=== PATIENT | female | born 1930 | race Caucasian/White ===

== ENCOUNTER 2016-10-17 09:33 | Inpatient (IN) ==
[2016-10-17 10:14] LABS: BASOPHILS % (AUTO) 0.4 % (0.0-3.0); EOSINOPHILS # (AUTO) 0.4 K/ul (0.0-0.7); EOSINOPHILS % (AUTO) 3.3 % (0.0-7.0); HEMATOCRIT 28.7 % (37.0-47.0); HEMOGLOBIN 9.7 g/dl (12.0-16.0); IMMATURE GRANULOCYTE % (AUTO) 0.7 % (0.0-5.0); LYMPHOCYTES # (AUTO) 0.8 K/uL (0.60-3.4); LYMPHOCYTES % (AUTO) 6.7 (10.0-50.0); MEAN CORPUSCULAR HEMOGLOBIN 31.3 pg (27.0-31.0); MEAN CORPUSCULAR HGB CONC 33.8 (31.8-35.4); MEAN CORPUSCULAR VOLUME 92.6 fl (81.0-99.0); NEUTROPHILS # (AUTO) 9.1 K/ul (2.0-6.9); NEUTROPHILS % (AUTO) 79.9; PLATELET COUNT 194 10^3/uL (140-440)
[2016-10-17 10:25] LABS: ADD URINE MICROSCOPIC YES; BILIRUBIN,URINE Negative (NEGATIVE); KETONES,URINE Negative (NEGATIVE); LEUKOCYTE ESTERASE ,URINE 3+ (NEGATIVE); NITRITE,URINE Positive (NEGATIVE); PH,URINE 8.5 (5-9); PROTEIN,URINE 2+ (NEGATIVE); URINE, BLOOD 1+ (NEGATIVE)
[2016-10-17 10:32] LABS: ALBUMIN 3.1 g/dL (3.4-5.0); ALBUMIN/GLOBULIN RATIO 0.84; ANION GAP 11.4; BILIRUBIN,TOTAL 0.36 mg/dL (0.00-1.20); BUN/CREATININE RATIO 51.68; CREATININE 0.89 mg/dL (0.60-1.30); POTASSIUM 4.4 mmol/L (3.5-5.10); TOTAL PROTEIN 6.8 g/dL (5.8-8.1)
--- NOTE | 2016-10-17 10:52 | ED.PDOC ---
General ED Provider: Dr. LUIS ALBERTO MOFFETT Chief Complaint: Fever Stated Complaint: fever, cough Time Seen by Physician: 09:43 Mode of Arrival: Ambulance Information Source: Patient Exam Limitations: No limitations Primary Care Provider: JESSIE HERRMANN Nursing and Triage Documentation Reviewed and Agree: Yes (presents from a local [facility] with cough fever ) Respiratory Complaint Exam - Respiratory Complaint/Exam Onset/Duration: was able to speak in no distress no pain Symptoms Are: Still present Timing: Constant Initial Severity: Mild Current Severity: Mild Location: Chest Character: Reports: Non-productive cough Aggravating: Reports: None Alleviating: Reports: None Associated Signs and Symptoms: Denies: Rapid breathing, Dyspnea, Chills, Chest pain, Pleuritic chest pain, Wheezing, Hemoptysis, Dizziness, Calf pain, Calf swelling, Edema, URI, Nasal congestion, Hoarseness, Sinus discomfort, Vomiting, Sore throat, Weight loss, Decreased oral intake, Increased thirst, Increased appetite, Increased urination Related History: Reports: Similar episode History of Healthcare-Acquired Pneumonia: No Related Surgical History: Reports: None Pulmonary Embolism Risk Factors: None Cardiac Risk Factors: Reports: None Pseudomonas Risk Factors: Reports: None Tuberculosis Risk Factors: Reports: None Status Asthmaticus Risk Factors: Reports: None Home Oxygen Use: No Recent Stress Test: No Recent Echo/LV Function: No Current Antibiotic Use: No Current Asthma Medication Use: No Respiratory Distress: None Inadequate Respiratory Effort: No Dysphagia Present: No Stridor Present: No JVD Present: No Accessory Muscle Use: No Retractions: Not Present Diminished Breath Sounds: No Sinus Tenderness: None Grunting Respirations: No Kussmaul Respirations: No Differential Diagnoses: Pneumonia, Bronchitis Review of Systems - Review Of Systems Constitutional: Reports: Fever, Malaise Eyes: Reports: No symptoms Ears, Nose, Mouth, Throat: Reports: No symptoms Respiratory: Reports: Cough Cardiac: Reports: No symptoms GI: Reports: No symptoms : Reports: No symptoms Musculoskeletal: Reports: No symptoms Skin: Reports: No symptoms Neurological: Reports: No symptoms Endocrine: Reports: No symptoms Hematologic/Lymphatic: Reports: No symptoms All Other Systems: Reviewed and Negative Past Medical History - Past Medical History Previously Healthy: Yes Endocrine: Reports: None Cardiovascular: Reports: None Respiratory: Reports: None Hematological: Reports: Anemia Gastrointestinal: Reports: None Genitourinary: Reports: None Neuro/Psych: Reports: None Musculoskeletal: Reports: None Cancer: Reports: None Last Menstrual Period: N/A - Surgical History General Surgical History: Reports: None - Family History Family History: Reports: None - Social History Smoking Status: Former smoker Hx Substance Use: No Alcohol Screening: None - Immunizations Tetanus Shot up to Date: Yes Physical Exam - Physical Exam Appearance: Ill-appearing Ill-appearing: Moderate Pain Distress: Mild Eyes: KESHIA, EOMI, Conjunctiva clear ENT: Dry mucosa Respiratory: Rhonchi Cardiovascular: RRR, Pulses normal, No rub, No murmur GI/: Soft, Nontender, No masses, Bowel sounds normal, No Organomegaly Musculoskeletal: Normal strength, ROM intact, No edema, No calf tenderness Skin: Warm, Dry, Normal color Neurological: Sensation intact, Motor intact, Reflexes intact, Cranial nerves intact, Alert, Oriented Psychiatric: Affect appropriate, Mood appropriate Interpretation - Radiology Interpretation Radiology Interpretation By: Radiologist - Carpet Tile Layer Ectopy: None (afib rate 80 wellen pattern t wave v3 (possible significant LAD OBSTRUCTION)) Re-Evaluation - Re-Evaluation Time of Re-Evaluation: 11:00 Status: Improved Vital Signs Stable: Yes Pain Level: 0 Appearance: NAD Lungs: Clear Skin: Warm and Dry Neuro: Alert and Oriented X3 CV: RRR - Re-Evaluation Time of Re-Evaluation: 11:30 Status: Unchanged (from 11 am no resp distress) Vital Signs Stable: Yes Pain Level: 0 Appearance: NAD Skin: Warm and Dry Neuro: Alert and Oriented X3 CV: RRR Physician Notification - Case Discussed Physician Notified: HERRMANN Time of Notification: 10:57 (ADMITT) Admit To: Inpatient Critical Care Note - Critical Care Note Total Time (mins): 0 Course - Course Hematology/Chemistry: 10/17/16 10:00 10/17/16 10:00 Orders, Labs, Meds: Lab Review 10/17/16 10/17/16 10:00 10:10 WBC 11.40 H RBC 3.10 L Hgb 9.7 L Hct 28.7 L MCV 92.6 MCH 31.3 H MCHC 33.8 RDW Coeff of Consuelo 13.5 Plt Count 194 Immature Gran % (Auto) 0.7 Neut % (Auto) 79.9 Lymph % (Auto) 6.7 L Randall % (Auto) 9.0 Eos % (Auto) 3.3 Baso % (Auto) 0.4 Immature Gran # (Auto) 0.1 Neut # 9.1 H Lymph # 0.8 Randall # 1.0 Eos # 0.4 Baso # 0.0 Sodium 138 Potassium 4.4 Chloride 100 Carbon Dioxide 31 Anion Gap 11.4 BUN 46 H Creatinine 0.89 Estimated GFR (MDRD) 60.00 BUN/Creatinine Ratio 51.68 Glucose 125 H Lactic Acid 9.4 Calcium 9.0 Total Bilirubin 0.36 AST 14 L ALT 17 Alkaline Phosphatase 70 Total Protein 6.8 Albumin 3.1 L Globulin 3.7 Albumin/Globulin Ratio 0.84 Procalcitonin < 0.05 Urine Color Yellow Urine Clarity Slightly Urine pH 8.5 Ur Specific [place] 1.015 Urine Protein 2+ Urine Glucose (UA) Negative Urine Ketones Negative Urine Blood 1+ Urine Nitrite Positive Urine Bilirubin Negative Urine Urobilinogen 0.2 Ur Leukocyte Esterase 3+ Urine Microscopic WBC Tntc Ur Squamous Epith Cells Not present Orders Category Date Time Status EKG-(ED ONLY) Stat CARDIO 10/17/16 09:46 Completed BLOOD CULTURE Stat LAB 10/17/16 10:00 Received CBC W/ AUTO DIFF Stat LAB 10/17/16 10:00 Completed COMPREHENSIVE METABOLIC PANEL Stat LAB 10/17/16 10:00 Completed LACTIC ACID Stat LAB 10/17/16 10:00 Completed PROCALCITONIN Stat LAB 10/17/16 10:00 Completed URINALYSIS C & S IF INDICATED Stat LAB 10/17/16 10:10 Completed URINE CULTURE Stat LAB 10/17/16 10:[address] ABDOMEN/PELVIS WO CONTRAST Stat RADS 10/17/16 09:[address] CHEST W/O CONTRAST Stat RADS 10/17/16 09:47 Ordered Vital Signs: Temp Pulse Resp BP Pulse Ox 10/17/16 09:34 98.8 F 87 20 140/92 H 94 L Departure - Departure Time of Disposition: 11:00 Disposition: ADMITTED INPATIENT Discharge Problem: Anemia Qualifiers: Anemia type: unspecified type Qualifier Code: (D64.9) Anemia, unspecified Atrial fibrillation Qualifiers: Atrial fibrillation type: unspecified Qualifier Code: (I48.91) Unspecified atrial fibrillation Instructions: A-fib (Atrial Fibrillation) (ED) Condition: Good Pt referred to PMD for follow-up: Yes Allergies/Adverse Reactions: Allergies acetaminophen [From Lortab] Adverse Reaction (Verified 10/17/16 09:54) No allergy to acetaminophen only hydrocodone. alprazolam [From Xanax] Adverse Reaction (Verified 10/17/16 09:54) codeine Adverse Reaction (Verified 10/17/16 09:54) hydrocodone bitartrate [From Lortab] Adverse Reaction (Verified 10/17/16 09:54) venlafaxine HCl [From Effexor] Adverse Reaction (Verified 10/17/16 09:54) IV DYE Adverse Reaction (Uncoded 10/17/16 09:54) TAMXENE Adverse Reaction (Uncoded 10/17/16 09:54) Home Medications: Ambulatory Orders Acetaminophen [Tylenol] 325 mg PO Q4H PRN 03/06/14 Ascorbate Calcium [Vitamin C] 500 mg PO DAILY 03/06/14 Atorvastatin Calcium [Lipitor] 20 mg PO BEDTIME 03/06/14 Docusate Sodium [Colace] 100 mg PO BID PRN 03/06/14 Ferrous Sulfate 325 mg PO BID 03/06/14 Lorazepam [Ativan] 0.5 mg PO BID 03/06/14 Mirabegron [Myrbetriq] 50 mg PO DAILY 03/06/14 Ondansetron HCl [Zofran Tab] 4 mg PO BID PRN 03/06/14 Phenytoin Cap [Dilantin] 100 mg PO BID 03/06/14 Polyethylene Glycol 3350 [Miralax] 17 gm PO DAILY PRN 03/06/14 Ranitidine HCl [Zantac] 150 mg PO BIDAC 03/06/14 Tizanidine HCl [Zanaflex] 4 mg PO TID 03/06/14 Trazodone HCl 50 mg PO BEDTIME 03/06/14 Vitamin E 400 unit PO DAILY 03/06/14 Apixaban [Eliquis] 2.5 mg PO BID tablet 03/11/14 Carvedilol [Coreg] 6.25 mg PO BIDWM 1 Days 03/11/14 Digoxin 125 mcg PO DAILY 1 Days 03/11/14 Diltiazem HCl [Cardizem] 60 mg PO Q8HR #1 tablet 03/11/14 Saccharomyces Boulardii [Florastor] 250 mg PO BID 30 Days 03/11/14 Magnesium Hydroxide [Milk of Magnesia] 1 cu PO DIRECTED PRN 10/17/16 Oxycodone HCl/Acetaminophen [Percocet 7.5-325 mg Tablet] 1 tab PO Q6HR 10/17/16 Disposition Discussed With: Patient
[2016-10-17] MEDS ORDERED: TYLENOL PO PRN (11:02)
[2016-10-17 11:14] LABS: PARTIAL THROMBOPLASTIN TIME 25.2 SEC (23.9-40.0)
[2016-10-17 11:16] LABS: ABG PCO2 42.6 mmHg (35-45); ABG PH 7.475 (7.35-7.45)
[2016-10-17 11:17] LABS: ABG BASE EXCESS 8 (-2.0-2.0); ABG HCO3 31.4 (22.0-26.0); ABG TCO2 33 (22.0-28.0)
--- NOTE | 2016-10-17 11:21 | CT ---
EXAM: CT chest without contrast HISTORY: Low grade fever and cough for several days COMPARISON: Chest x-ray 03/09/2014 and 03/06/2014 TECHNIQUE: Serial axial images of the chest were obtained from the lung apices to the upper abdomen without contrast. These were viewed in multiple planes. FINDINGS: The thyroid is normal. The visualized vessels demonstrate ascending aortic diameter of 3 .6 cm. The descending aorta is normal. The pulmonary arteries are normal. The heart is unremarkab le with trace pericardial fluid. Coronary calcifications are present. Mediastinal and hilar lymph n odes are present at upper limit of normal for size There is a moderate right and small left pleural effusion with adjacent consolidation. There is mil d patchy ground-glass and airway thickening throughout the lungs. The airways are patent. Soft tissues in the abdomen pelvis are better evaluated on same day CT abdomen pelvis. The osseous s tructures demonstrate scattered degenerative disease IMPRESSION: 1. Moderate right and small left pleural effusion with adjacent atelectasis. 2. There is airway thickening and interstitial ground-glass which may represent atypical infection versus pulmonary edema. 3. Ascending aorta is mildly enlarged at 3.6 cm.
--- NOTE | 2016-10-17 11:37 | CT ---
Exam: CT abdomen and pelvis without contrast HISTORY: Pain. Low grade fever and cough. Procedures: 5 mm contiguous axial images were obtained through the abdomen and pelvis without the u se of intravenous or oral contrast. Sagittal and coronal reformatted images were also created and r eviewed. Comparison: 10/25/2014. Findings: Evaluation of the soft tissues is limited without use of intravenous or oral contrast. P lease refer to the dedicated chest CT this same date for details above the diaphragms. In the right lobe of the liver there is a 10 mm fluid density probable cyst. Surgical clips are again noted in the gallbladder fossa. The spleen, pancreas and adrenal glands appear stable from prior. The left adrenal gland again demonstrates a 2 cm x 1.6 cm nodule measuring minus 3 HU in attenuation. The ki dneys are symmetric in size without radiodense renal stone or hydronephrosis. There is a very small hiatal hernia, otherwise the unopacified stomach and small bowel appear grossly within normal limit s. There is moderate gaseous distension of multiple loops of small bowel. The appendix is not visu alized. There is a moderate amount of stool in the colon. Multiple diverticula are noted in the si gmoid region without adjacent inflammatory change. There is a large amount of dense stool dilating the rectum to 8.6 cm the urinary bladder is nondilated, there is a 6 mm x 4 mm calcification in the posterior right bladder in the region of the ureterovesicular junction. In the anterior right pelvi s there is a 7.4 cm x 5.6 cm x 6.9 cm ovoid well-circumscribed fluid density cystic lesion. There i s no free air, free fluid or lymphadenopathy identified involving the abdomen or pelvis. Diffuse at herosclerotic calcifications are noted, without aortic aneurysm. Please note the patient demographic s state this patient is male however the anatomy is consistent with female. Bone windows demonstrate degenerative findings in the hips and spine. Moderate levoscoliosis is aga in noted. There is no acute fracture. Impressions: No nephrolithiasis or hydronephrosis. A 6 mm x 4 mm calcification is noted in the pos terior right urinary bladder near the ureterovesicular junction. Moderate amount stool throughout the colon. Large amount of stool dilating the rectum to 8.6 cm sug gests fecal impaction. Disimpaction is recommended. 7.4 cm x 5.6 cm x 6.9 cm well-circumscribed fluid density cyst in the right pelvis, this is probably a large ovarian cyst which has an abnormal finding in a patient of this age. Gynecologic consultat ion is recommended. Diverticulosis without diverticulitis. Very small hiatal hernia. Findings were faxed to the emergency department at 11:25 a.m.
[2016-10-17 12:18] VITALS: BMI 24.6
[2016-10-17] MEDS: SODIUM CHLORIDE 1,000 ML IV SCH (12:24)
[2016-10-17] MEDS: PERCOCET 7.5-325 PO SCH ×3 (12:28→23:00)
[2016-10-17] MEDS ORDERED: MIRALAX PO PRN (12:43)
[2016-10-17] MEDS ORDERED: MILK OF MAGNESIA PO PRN (12:43)
[2016-10-17] MEDS ORDERED: DECADRON 4 MG/ML SDV IM STA (12:44)
[2016-10-17] MEDS: CARDIZEM PO SCH ×2 (13:44→20:46)
[2016-10-17] MEDS: ROCEPHIN 1 GM in SODIUM CHLORIDE 50 ML IV SCH (13:44)
[2016-10-17] MEDS: ZANAFLEX PO SCH ×2 (14:03→20:45)
[2016-10-17] MEDS ORDERED: NON-FORMULARY MEDICATION (Tizanidine Hcl [Zanaflex] 4 MG) PO SCH ×22 (15:00)
[2016-10-17] MEDS: ZANTAC PO SCH (17:09)
[2016-10-17] MEDS: COREG PO SCH (17:09)
[2016-10-17 18:09] LABS: TROPONIN I 0.087 ng/ml (0.0000-0.4000)
[2016-10-17] MEDS: COLACE PO SCH (20:45)
[2016-10-17] MEDS: FERROUS SULFATE PO SCH (20:45)
[2016-10-17] MEDS: DESYREL PO SCH (20:45)
[2016-10-17] MEDS: LIPITOR PO SCH (20:45)
[2016-10-17] MEDS: DILANTIN PO SCH (20:45)
[2016-10-17] MEDS: ATIVAN PO SCH (20:45)
[2016-10-17] MEDS: FLORASTOR PO SCH (20:46)
[2016-10-17] MEDS: ELIQUIS PO SCH (20:46)
[2016-10-17] MEDS ORDERED: NON-FORMULARY MEDICATION (Trazodone Hcl [Trazodone Hcl] 50 MG) PO SCH ×22 (21:00)
[2016-10-17] MEDS ORDERED: NON-FORMULARY MEDICATION (Apixaban [Eliquis] 2.5 MG) PO SCH (21:00)
[2016-10-17] MEDS ORDERED: NON-FORMULARY MEDICATION (Ferrous Sulfate [Ferrous Sulfate] 325 MG) PO SCH ×22 (21:00)
[2016-10-18] MEDS: SODIUM CHLORIDE 1,000 ML IV SCH ×2 (00:49→14:51)
[2016-10-18 01:05] LABS: BASOPHILS % (AUTO) 0.4 % (0.0-3.0); HEMATOCRIT 30.4 % (37.0-47.0); HEMOGLOBIN 10.2 g/dl (12.0-16.0); IMMATURE GRANULOCYTE % (AUTO) 1.8 % (0.0-5.0); LYMPHOCYTES # (AUTO) 0.6 K/uL (0.60-3.4); LYMPHOCYTES % (AUTO) 6.3 (10.0-50.0); MEAN CORPUSCULAR HEMOGLOBIN 31.6 pg (27.0-31.0); MEAN CORPUSCULAR HGB CONC 33.6 (31.8-35.4); MEAN CORPUSCULAR VOLUME 94.1 fl (81.0-99.0); MONOCYTES # (AUTO) 0.4 K/uL (0.4-2.0); NEUTROPHILS # (AUTO) 8.9 K/ul (2.0-6.9); NEUTROPHILS % (AUTO) 87.5; PLATELET COUNT 199 10^3/uL (140-440); RED BLOOD COUNT 3.23 10^6/ul (4.20-5.40); WHITE BLOOD COUNT 10.18 K/ul (4.6-10.2)
[2016-10-18 01:22] LABS: ALBUMIN 3.1 g/dL (3.4-5.0); ALBUMIN/GLOBULIN RATIO 0.79; ANION GAP 13.9; BILIRUBIN,TOTAL 0.39 mg/dL (0.00-1.20); BUN/CREATININE RATIO 47.19; CALCIUM 8.9 mg/dL (8.2-10.2); CREATININE 0.89 mg/dL (0.60-1.30); POTASSIUM 4.9 mmol/L (3.5-5.10)
[2016-10-18 01:28] LABS: TROPONIN I 0.102 ng/ml (0.0000-0.4000)
[2016-10-18] MEDS: CARDIZEM PO SCH ×3 (05:55→20:05)
[2016-10-18] MEDS: PERCOCET 7.5-325 PO SCH ×4 (05:55→23:15)
[2016-10-18] MEDS: ZANTAC PO SCH ×2 (05:55→17:08)
[2016-10-18] MEDS ORDERED: CITRATE OF MAGNESIA PO STA (07:42)
[2016-10-18] MEDS: ELIQUIS PO SCH ×2 (08:56→20:06)
[2016-10-18] MEDS: MIRALAX PO SCH ×3 (08:56→20:44)
[2016-10-18] MEDS: MYRBETRIQ PO SCH (08:56)
[2016-10-18] MEDS: FERROUS SULFATE PO SCH ×2 (08:56→20:05)
[2016-10-18] MEDS: VITAMIN C PO SCH (08:56)
[2016-10-18] MEDS: ATIVAN PO SCH ×2 (08:57→20:05)
[2016-10-18] MEDS: DILANTIN PO SCH ×2 (08:57→20:05)
[2016-10-18] MEDS: ZANAFLEX PO SCH ×3 (08:57→20:05)
[2016-10-18] MEDS: COLACE PO SCH ×2 (08:57→20:05)
[2016-10-18] MEDS: COREG PO SCH ×2 (08:57→17:09)
[2016-10-18] MEDS: VITAMIN E PO SCH (08:57)
[2016-10-18] MEDS: LANOXIN PO SCH (08:58)
[2016-10-18] MEDS: FLORASTOR PO SCH ×2 (09:00→20:06)
[2016-10-18] MEDS ORDERED: NON-FORMULARY MEDICATION (Ascorbate Calcium [Vitamin C] 500 MG) PO SCH ×22 (09:00)
[2016-10-18] MEDS ORDERED: VITAMIN E 400 UNIT PO SCH ×22 (09:00)
[2016-10-18] MEDS ORDERED: NON-FORMULARY MEDICATION (Mirabegron [Myrbetriq] 50 MG) PO SCH (09:00)
[2016-10-18] MEDS ORDERED: DECADRON 4 MG/ML SDV IM SCH (09:00)
[2016-10-18] MEDS: ROCEPHIN 1 GM in SODIUM CHLORIDE 50 ML IV SCH (09:09)
--- NOTE | 2016-10-18 11:23 | PCM.PROG ---
Attending Provider: ATTENDING PROVIDER: Dr. JESSIE HERRMANN DATE OF SERVICE: 10/18/16 SUBJECTIVE: This 86 year old WHITE/ F was hospitalized 10/17/16. The patient is seen with Caroline, Nurse Practitioner. The patient is alert, lying in bed. She says she feels somewhat nauseated. No fever since admission. Urine and blood cultures pending. REVIEW OF SYSTEMS: CONSTITUTIONAL: Positive for weakness. No night sweats. No fever or chills. HEENT: Eyes: No visual changes. No eye pain. No eye discharge. ENT: No runny nose. No epistaxis. No sinus pain. No odynophagia. No congestion. RESPIRATORY: No cough, no congestion. No hemoptysis. No shortness of breath. CARDIOVASCULAR: No angina symptoms. No CHF symptoms. No atypical chest pain for CAD. No palpitations. No orthopnea.. GASTROINTESTINAL: Nausea. Constipation. No abdominal pain. No hematemesis. No hematochezia. GENITOURINARY: No urgency. No frequency. No dysuria. No hematuria. No obstructive symptoms. No discharge. No pain. No significant abnormal bleeding. MUSCULOSKELETAL: No musculoskeletal pain; no joint swelling. NEUROLOGICAL: Awake, alert, oriented to time, place and person. No headache. No neck pain. No syncope. No seizures. No dizziness. PSYCHIATRIC: Not anxious. No depression. No suicidal thoughts. No homicidal thoughts. SKIN: No rash. No lesions. No wounds. ENDOCRINE: No unexplained weight loss. No weight gain. HEMATOLOGIC/LYMPHATIC: No anemia. No purpura. No petechiae. No prolonged or excessive bleeding. No palpable lymph nodes. PHYSICAL EXAMINATION: GENERAL: The patient is awake, alert and oriented, lying/sitting in bed in no distress. VITAL SIGNS: Temperature 98.4 F, Pulse 74, Respiratory Rate 12, BP 133/75, Pulse Ox 98% HEENT: Head normocephalic, atraumatic. Eyes: Extraocular muscles are intact. Pupils are equal, round and reactive to light and accommodation. Ears: No lesions. Nose appeared normal. Throat: No exudate or erythema. NECK: Supple. No JVD, no carotid bruit. No lymphadenopathy or thyromegaly. LUNGS: Diminished breath sounds bilaterally, irregular heart rate consistent with atrial fibrillation. Percussion note normal. Chest symmetrical. HEART: S1, S2, no S3. No murmurs. No cyanosis or clubbing. No ascites. Pulses: Dorsalis pedis and posterior tibial pulses +1 to +2 both sides. ABDOMEN: Soft. Non-tender. Bowel sounds active. No CVA tenderness. No mass felt. EXTREMITIES: No edema. Full range of motion of all extremities, equal. NEUROLOGIC: No focal deficit. Left-sided weakness due to CVA. No headache, no double vision or headache. SKIN: Not dry. Intact. Turgor-normal. LYMPHATIC: No palpable lymph nodes/no lymphedema. MUSCULOSKELETAL: Normal joints with no swelling. Muscle tone is normal. LAB REVIEW: 10/18/16 01:00 10/18/16 01:00 10/18/16 01:00: WBC 10.18, RBC 3.23 L, Hgb 10.2 L, Hct 30.4 L, MCV 94.1, MCH 31.6 H, MCHC 33.6, RDW Coeff of Consuelo 13.5, Plt Count 199, Immature Gran % (Auto) 1.8, Neut % (Auto) 87.5, Lymph % (Auto) 6.3 L, [place] % (Auto) 4.0, Eos % (Auto) 0.0, Baso % (Auto) 0.4, Immature Gran # (Auto) 0.2, Neut # 8.9 H, Lymph # 0.6, [place] # 0.4, Eos # 0.0, Baso # 0.0, Sodium 138, Potassium 4.9, Chloride 100, Carbon Dioxide 29, Anion Gap 13.9, BUN 42 H, Creatinine 0.89, Estimated GFR ( MDRD) 60.00, BUN/Creatinine Ratio 47.19, Glucose 128 H, Calcium 8.9, Total Bilirubin 0.39, AST 14 L, ALT 17, Alkaline Phosphatase 71, Total Creatine Kinase 51, Troponin I 0.1020, Total Protein 7.0, Albumin 3.1 L, Globulin 3.9, Albumin/Globulin Ratio 0.79 10/17/16 17:45: Total Creatine Kinase 52, Troponin I 0.0870 ASSESSMENT: 1. UTI 2. ANEMIA 3. ATRIAL FIBRILLATION 4. CONSTIPATION PLAN: 1. Continue Rocephin 2. Miralax daily twice a day 3. Magnesium Citrate 4. Zofran for nausea once p.o. 5. Colace b.i.d. Plan and coordination of the patient's care discussed in the presence of Iron Pourer and nurse. CONDITION: STABLE SCRIBED BY: MIRYAM MINER Low Voltage Electrician scribed while in presence of service performed by Dr. JESSIE HERRMANN/CAROLINE BRAUN APRN on 10/18/16 ([id number])
--- NOTE | 2016-10-18 13:22 | HP ---
DATE OF SERVICE: 10/17/16 REASON FOR HOSPITALIZATION: Cough, fever and congestion HISTORY OF PRESENT ILLNESS: The patient is a 86 year old white female resident of [facility] was sent to the emergency room after the [facility] called my office because of chronic cough with low grade fever. The patient on further workup as leukocytosis with normal chest x-ray, confusion and dehydration with creatinine of 0.8 and BUN 46. The patient also had abnormal UA with nitrate positive and 1+ blood and 2+ proteins and 3+ urine Leukocyte esterase. REVIEW OF SYSTEMS: CONSTITUTIONAL: No night sweats. No malaise, lethargy. No fever or chills. Fatigue and weakness. HEENT: Eyes: No visual changes. No eye pain. No eye discharge. ENT: No runny nose. No epistaxis. No sinus pain. No sore throat. No odynophagia. No ear pain. No congestion. RESPIRATORY: Cough and congestion, mild yellowish sputum. No hemoptysis. No shortness of breath. CARDIOVASCULAR: No angina symptoms. No CHF symptoms. No atypical chest pain for CAD. No palpitations. No orthopnea. No PND. GASTROINTESTINAL: No abdominal pain. No nausea or vomiting. No diarrhea or constipation. No hematemesis. No hematochezia. Poor appetite for past couple of days. GENITOURINARY: No urgency. No frequency. No dysuria. No hematuria. No obstructive symptoms. No discharge. No pain. No significant abnormal bleeding. MUSCULOSKELETAL: No musculoskeletal pain. No joint swelling. No arthritis. Generalized aches and pains. NEUROLOGICAL: No headache. No neck pain. No syncope. No seizures. No dizziness. PSYCHIATRIC: Not anxious. No depression. No suicidal thoughts. No homicidal thoughts. SKIN: No rash. No lesions. No wounds. ENDOCRINE: No unexplained weight loss. No weight gain. HEMATOLOGIC/LYMPHATIC: No anemia. No purpura. No petechiae. No prolonged or excessive bleeding. No palpable lymph nodes. PERSONAL/FAMILY/SOCIAL HISTORY: The patient is and lives in the [facility]. Nonsmoker and no alcohol abuse. 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 Dyslipidemia Migraine headaches History of convulsions with having history of having brain tumor Generalized anxiety disorder Major depressive disorder Cholecystectomy Hypertension MEDICATIONS: Vitamin C Atorvastatin Lipitor 20mg PO daily Ferrous Sulfate 325mg PO twice a day Ativan 0.5mg twice a day Myrbetriq 50mg PO daily Zofran 4mg PO twice a day Dilantin 100mg PO twice a day Zantac 150mg PO twice a day Zanaflex 4mg PO three times a day Trazodone 50mg at bedtime Eliquis 2.5mg twice a day Coreg 6.25mg twice a day Digoxin 1.25mg PO daily Cardizem 60mg PO Q 8 hours Percocet 7.5 Q 6 hours ALLERGIES: Xanax Codeine Hydrocodone Effexor IV dye Tamxene PHYSICAL EXAMINATION: GENERAL: The patient is oriented to time, place and person, not in distress. VITAL SIGNS: Temperature 98.2, pulse 77, respiratory rate 20, blood pressure 100/63 and pulse ox 90%. HEENT: Head normocephalic, atraumatic. Eyes: Extraocular muscles are intact. Pupils are equal, round and reactive to light and accommodation. Ears: No lesions. Nose appeared normal. Throat: No exudate or erythema. NECK: Supple. No JVP, no carotid bruit. No lymphadenopathy or thyromegaly. LUNGS: Decreased breath sounds with mild wheeze bilaterally. Percussion note normal. Chest symmetrical. HEART: S1, S2, no S3. No murmurs. No cyanosis or clubbing. No ascites. Pulses: Dorsalis pedis and posterior tibial pulses +1 bilaterally. ABDOMEN: Soft. Nontender. Bowel sounds active. No CVA tenderness. No mass felt. EXTREMITIES: No edema. Full range of motion of all extremities, equal. The patient has foot drop on the left foot NEUROLOGIC: No focal deficit. Cranial nerves II through XII are grossly intact. No headache, no double vision or headache. SKIN: Dry. Intact. Turgor - normal. Pallor noted. LYMPHATIC: No palpable lymph nodes/no lymphedema. MUSCULOSKELETAL: Normal joints with no swelling. Muscle tone is normal. LABS: Hgb 9.7, hct 28, WBC 11,400 normal differential, creatinine 0.8, BUN 46, potassium 4.4, glucose 125, INR 1.08, GFR 60cc per minute. Procalcitonin negative, UA shows +2 protein and 1+ blood and positive for nitrates and leukocyte esterase. ABG pO2 70, pCO2 42, pH 7.47 with 95% saturation, Digoxin level 0.73, INR 1.08, creatinine 0.8, BUN 46 and normal liver profile, lactic acid 9.4 normal, Procalcitonin less than 0.05. CT of the chest showed moderate right and small left pleural effusion with atelectasis with heavy thickening likely from infection. ASSESSMENT: 1. Acute bronchitis with low grade fever 2. Strong possibility of UTI with abnormal UA 3. Dehydration with renal azotemia 4. Dementia 5. Atrial fibrillation on Eliquis 6. History of CVA with left hemiparesis 7. Coronary artery disease 8. Congestive heart failure 9. 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 Continue Eliquis 2.5mg twice a day 2. Continue Lipitor and Coreg 3. 1cc Decadron today and tomorrow morning 4. Lanoxin 125mcg PO daily 5. Continue Cardizem as before 6. Rocephin 1 gram Q 24 hourly 7. Continue Ativan 8. Continue Zofran 9. IV fluids 1,000cc D5 1/2 normal saline 75 cc per hour 10.Continue Dilantin 11.Continue Desyrel and Zanaflex 12.Daily CBC and CMP 13.Telemetry already applied to the patient. CONDITION: Stable PROGNOSIS: Guarded TIME SPENT: More than 70 minutes. MTDD
--- NOTE | 2016-10-18 13:22 | ECHO2D ---
Date of Exam: 10/18/16 Ordering Physician: JESSIE HERRMANN Reason for Echo: CAD, CVA, CHF M-Mode Normal Adult Results LV Dimensions Normal Adult Results AoV Opening excursions >1.6 >1.6 LVEDD-base- 3.5-5.8 4.0 Ao root dimensions 2.0-3.7 3.5 LVESD-base- 3.1-4.6 L. Atrium dimensions 1.9-3.8 5.3 Post. Wall thickness 0.8-1.1 1.4 IV septum (thickness) 0.7-1.2 1.4 Post. Wall excursion 0.72-1.3 NORMAL Septal motion 0.4 Systolic motion R. Ventricular cavity 1.5-2.0 NORMAL LVEF 60% 61% Paradoxical septal wall motion NORMAL 2-D : DILATED LEFT ATRIAL CAVITY--CALCIFIC MITRAL ANNULUS AND THICKENED LEAFLET , NO STENOSIS--HYPOKINETIC SEPTUM, NO EFFUSION, NO THROMBUS COLOR FLOW: MITRAL REGURGITATION --MODERATE M-MODE: MV: CALCIFIC MITRAL VALVE ANNULUS--THICKENED LEAFLETS AV: NORMAL TV: NORMAL PV: CHAMBER SIZE: ENLARGED LEFT ATRIAL CAVITY WALL MOTION: HYPOKINETIC SEPTUM PERICARDIUM: SMALL PERICARDIAL EFFUSION INTERPRETATION: 1. MODERATE LEFT VENTRICULAR HYPERTROPHY WITH ENLARGED LEFT ATRIAL CAVITY (5.3) 2. HYPOKINETIC SEPTUM WITH LEFT VENTRICULAR EJECTION FRACTION 61% 3. THICKENED MITRAL VALVE LEAFLET 4. MODERATE TO SEVERE MITRAL REGURGITATION MTDD
[2016-10-18] MEDS: LIPITOR PO SCH (20:05)
[2016-10-18] MEDS: DESYREL PO SCH (20:06)
[2016-10-19] MEDS: SODIUM CHLORIDE 1,000 ML IV SCH (03:11)
[2016-10-19] MEDS: ZANTAC PO SCH ×2 (05:39→17:09)
[2016-10-19] MEDS: CARDIZEM PO SCH ×3 (05:39→21:09)
[2016-10-19] MEDS: PERCOCET 7.5-325 PO SCH ×4 (05:39→23:37)
[2016-10-19 05:45] LABS: BASOPHILS % (AUTO) 0.2 % (0.0-3.0); EOSINOPHILS % (AUTO) 0.2 % (0.0-7.0); HEMOGLOBIN 9.2 g/dl (12.0-16.0); IMMATURE GRANULOCYTE % (AUTO) 1.1 % (0.0-5.0); LYMPHOCYTES % (AUTO) 8.3 (10.0-50.0); MEAN CORPUSCULAR HEMOGLOBIN 31.1 pg (27.0-31.0); MEAN CORPUSCULAR HGB CONC 32.9 (31.8-35.4); MEAN CORPUSCULAR VOLUME 94.6 fl (81.0-99.0); MONOCYTES # (AUTO) 0.9 K/uL (0.4-2.0); MONOCYTES % (AUTO) 7.8 (0-10); NEUTROPHILS # (AUTO) 9.8 K/ul (2.0-6.9); NEUTROPHILS % (AUTO) 82.4; PLATELET COUNT 207 10^3/uL (140-440); RED BLOOD COUNT 2.96 10^6/ul (4.20-5.40); WHITE BLOOD COUNT 11.86 K/ul (4.6-10.2)
[2016-10-19 06:07] LABS: ALBUMIN/GLOBULIN RATIO 0.81; ANION GAP 16.4; BILIRUBIN,TOTAL 0.32 mg/dL (0.00-1.20); BUN/CREATININE RATIO 47.12; CALCIUM 8.3 mg/dL (8.2-10.2); CREATININE 0.87 mg/dL (0.60-1.30); POTASSIUM 5.4 mmol/L (3.5-5.10); TOTAL PROTEIN 6.7 g/dL (5.8-8.1)
[2016-10-19] MEDS ORDERED: DECADRON 4 MG/ML SDV IM STA (08:15)
[2016-10-19] MEDS ORDERED: LASIX IVP STA (08:15)
[2016-10-19] MEDS: ATIVAN PO SCH ×2 (09:12→21:10)
[2016-10-19] MEDS: ZOFRAN TAB PO PRN (09:12)
[2016-10-19] MEDS: MIRALAX PO SCH ×2 (09:13→21:08)
[2016-10-19] MEDS: ELIQUIS PO SCH ×2 (09:13→21:09)
[2016-10-19] MEDS: LEVAQUIN 250 MG in PREMIX 50 ML D5W 1 BAG IV SCH (09:13)
[2016-10-19] MEDS: VITAMIN E PO SCH (09:13)
[2016-10-19] MEDS: MYRBETRIQ PO SCH (09:13)
[2016-10-19] MEDS: DILANTIN PO SCH ×2 (09:14→21:10)
[2016-10-19] MEDS: COREG PO SCH ×2 (09:14→17:09)
[2016-10-19] MEDS: FERROUS SULFATE PO SCH ×2 (09:14→21:10)
[2016-10-19] MEDS: LANOXIN PO SCH (09:14)
[2016-10-19] MEDS: COLACE PO SCH ×2 (09:15→21:10)
[2016-10-19] MEDS: VITAMIN C PO SCH (09:15)
[2016-10-19] MEDS: ZANAFLEX PO SCH ×3 (09:15→21:10)
[2016-10-19] MEDS: TORADOL IVP SCH ×2 (09:18→21:11)
--- NOTE | 2016-10-19 09:59 | PCM.PROG ---
Attending Provider: ATTENDING PROVIDER: Dr. JESSIE HERRMANN DATE OF SERVICE: 10/19/16 SUBJECTIVE: This 86 year old WHITE/ F was hospitalized 10/17/16. The patient is seen with Caroline, Nurse Practitioner. The patient is alert, lying in bed states she is hurting and feels nauseated. The patient is positive for Proteus Mirabilis in her urine sensitive to Levaquin. REVIEW OF SYSTEMS: CONSTITUTIONAL: No night sweats. No fatigue, malaise, lethargy. No fever or chills. HEENT: Eyes: No visual changes. No eye pain. No eye discharge. ENT: No runny nose. No epistaxis. No sinus pain. No odynophagia. No congestion. RESPIRATORY: No cough, no congestion. No hemoptysis. Shortness of breath. CARDIOVASCULAR: No angina symptoms. No CHF symptoms. No atypical chest pain for CAD. No palpitations. No orthopnea.. GASTROINTESTINAL: Nausea. No abdominal pain. No diarrhea or constipation. No hematemesis. No hematochezia. GENITOURINARY: No urgency. No frequency. No dysuria. No hematuria. No obstructive symptoms. No discharge. No pain. No significant abnormal bleeding. MUSCULOSKELETAL: Back pain NEUROLOGICAL: Awake, alert, oriented to time, place and person. No headache. No neck pain. No syncope. No seizures. No dizziness. PSYCHIATRIC: Not anxious. No depression. No suicidal thoughts. No homicidal thoughts. SKIN: No rash. No lesions. No wounds. ENDOCRINE: No unexplained weight loss. No weight gain. HEMATOLOGIC/LYMPHATIC: No anemia. No purpura. No petechiae. No prolonged or excessive bleeding. No palpable lymph nodes. PHYSICAL EXAMINATION: GENERAL: The patient is awake, alert and oriented, lying/sitting in bed in no distress. VITAL SIGNS: Temperature 97.4 F, Pulse 69, Respiratory Rate 17, BP 149/89, Pulse Ox 94% HEENT: Head normocephalic, atraumatic. Eyes: Extraocular muscles are intact. Pupils are equal, round and reactive to light and accommodation. Ears: No lesions. Nose appeared normal. Throat: No exudate or erythema. NECK: Supple. No JVD, no carotid bruit. No lymphadenopathy or thyromegaly. LUNGS: Wheezing bilaterally. Percussion note normal. Chest symmetrical. HEART: Irregular heartbeat. S1, S2, no S3. No murmurs. No cyanosis or clubbing. No ascites. Pulses: Dorsalis pedis and posterior tibial pulses +1 to +2 both sides. ABDOMEN: Soft. Non-tender. Bowel sounds active. No CVA tenderness. No mass felt. EXTREMITIES: No edema. Full range of motion of all extremities, equal. NEUROLOGIC: No focal deficit. Cranial nerves II through XII are grossly intact. No headache, no double vision or headache. SKIN: Not dry. Intact. Turgor-normal. LYMPHATIC: No palpable lymph nodes/no lymphedema. MUSCULOSKELETAL: Normal joints with no swelling. Muscle tone is normal. LAB REVIEW: 10/19/16 05:20 10/19/16 05:20 10/19/16 05:20: WBC 11.86 H, RBC 2.96 L, Hgb 9.2 L, Hct 28.0 L, MCV 94.6, MCH 31.1 H, MCHC 32.9, RDW Coeff of Consuelo 13.4, Plt Count 207, Immature Gran % (Auto) 1.1, Neut % (Auto) 82.4, Lymph % (Auto) 8.3 L, [place] % (Auto) 7.8, Eos % (Auto) 0.2, Baso % (Auto) 0.2, Immature Gran # (Auto) 0.1, Neut # 9.8 H, Lymph # 1.0, [place] # 0.9, Eos # 0.0, Baso # 0.0, Sodium 140, Potassium 5.4 H, Chloride 101, Carbon Dioxide 28, Anion Gap 16.4, BUN 41 H, Creatinine 0.87, Estimated GFR ( MDRD) 62.00, BUN/Creatinine Ratio 47.12, Glucose 109, Calcium 8.3, Total Bilirubin 0.32, AST 32, ALT 31, Alkaline Phosphatase 67, Total Protein 6.7, Albumin 3.0 L, Globulin 3.7, Albumin/Globulin Ratio 0.81 ASSESSMENT: 1. UTI 2. WHEEZING 3. ANEMIA 4. ATRIAL FIBRILLATION 5. CONSTIPATION PLAN: 1. Discontinue Rocephin. 2. Toradol 30 mg IV q.12hr. 3. Levaquin 250 mg IV. 4. Chest x-ray. 5. Discontinue IV fluids. 6. Lasix 20 mg IV one dose. 7. Decadron 4 mg one dose today and one tomorrow. Plan and coordination of the patient's care discussed in the presence of Research And Development Director and nurse. CONDITION: Stable SCRIBED BY: Puneet SONG scribed while in presence of service performed by Dr. JESSIE HERRMANN/CAROLINE BRAUN APRN on 10/19/16 ([id number])
[2016-10-19] MEDS: FLORASTOR PO SCH ×2 (10:02→21:09)
--- NOTE | 2016-10-19 10:57 | DI ---
EXAM: CHEST FRONTAL VIEW HISTORY: Wheezing. COMPARISON: 03/09/2014 FINDINGS: Upper limit normal heart size is stable. There is at least mild aortic atherosclerosis. Density in the right base suggesting a small pleural effusion. No active congestive heart failure, pneumothorax or hipolito lobar consolidation. IMPRESSION: Density in the left base which probably represents a small pleural effusion. Underlying atelectasis , pneumonia or other pathology not excluded and follow-up is recommended.
--- NOTE | 2016-10-19 13:21 | PN ---
DATE OF SERVICE: 10/18/16 SUBJECTIVE: The patient is an 86 year old white female hospitalized with fever, cough, congestion and acute bronchitis. The patient's cough still there but much less. It is non productive. The patient is alert. Her mental status, she is more sharper. REVIEW OF SYSTEMS: CONSTITUTIONAL: No night sweats. No fatigue, malaise, lethargy. No fever or chills. HEENT: Eyes: No visual changes. No eye pain. No eye discharge. ENT: No runny nose. No epistaxis. No sinus pain. No sore throat. No odynophagia. No congestion. RESPIRATORY: No cough, no congestion. No hemoptysis. No shortness of breath. CARDIOVASCULAR: No angina symptoms. No CHF symptoms. No atypical chest pain for CAD. No palpitations. No orthopnea. GASTROINTESTINAL: No abdominal pain. No nausea or vomiting. No diarrhea or constipation. No hematemesis. No hematochezia. GENITOURINARY: No urgency. No frequency. No dysuria. No hematuria. No obstructive symptoms. No discharge. No pain. No significant abnormal bleeding. MUSCULOSKELETAL: No musculoskeletal pain; no joint swelling. NEUROLOGICAL: No headache. No neck pain. No syncope. No seizures. No dizziness. PSYCHIATRIC: Not anxious. No depression. No suicidal thoughts. No homicidal thoughts. SKIN: No rash. No lesions. No wounds. ENDOCRINE: No unexplained weight loss. No weight gain. HEMATOLOGIC/LYMPHATIC: No anemia. No purpura. No petechiae. No prolonged or excessive bleeding. No palpable lymph nodes. PHYSICAL EXAMINATION: VITAL SIGNS: Blood pressure 13/75. HEENT: Head normocephalic, atraumatic. Eyes: Extraocular muscles are intact. Pupils are equal, round and reactive to light and accommodation. Ears: No lesions. Nose appeared normal. Throat: No exudate or erythema. NECK: Supple. No JVD, no carotid bruit. No lymphadenopathy or thyromegaly. LUNGS: Clear to auscultation. Percussion note normal. Chest symmetrical. HEART: S1, S2, no S3. No murmurs. No cyanosis or clubbing. No ascites. Pulses: Dorsalis pedis and posterior tibial pulses +1 to +2 both sides. ABDOMEN: Soft. Nontender. Bowel sounds active. No CVA tenderness. No mass felt. EXTREMITIES: No edema. Full range of motion of all extremities, equal. NEUROLOGIC: No focal deficit. Cranial nerves II through XII are grossly intact. No headache, no double vision or headache. SKIN: Not dry. Intact. Turgor - improved. LYMPHATIC: No palpable lymph nodes/no lymphedema. MUSCULOSKELETAL: Normal joints with no swelling. Muscle tone is normal. LABS: Echo showed hypokinetic septum but normal LV contractility with hyperdynamic LV posterior wall compensating for hypokinetic septum, LV size is normal, LA cavity it markedly enlarged with thickened mitral leaflet. The patient has moderate to severe mitral regurgitation. CONDITION: Stable The patient was seen with Nurse Practitioner and Laboratory Apparatus Glass Grinder. TIME SPENT: More than 30 minutes. Plan and coordination of the patient's care discussed in the presence of nurse. ASHLYN
[2016-10-19] MEDS: LIPITOR PO SCH (21:10)
[2016-10-19] MEDS: DESYREL PO SCH (21:10)
[2016-10-20 05:35] LABS: BASOPHILS % (AUTO) 0.2 % (0.0-3.0); EOSINOPHILS % (AUTO) 0.2 % (0.0-7.0); HEMATOCRIT 29.5 % (37.0-47.0); HEMOGLOBIN 9.5 g/dl (12.0-16.0); IMMATURE GRANULOCYTE % (AUTO) 1.7 % (0.0-5.0); LYMPHOCYTES # (AUTO) 1.2 K/uL (0.60-3.4); LYMPHOCYTES % (AUTO) 9.6 (10.0-50.0); MEAN CORPUSCULAR HEMOGLOBIN 30.6 pg (27.0-31.0); MEAN CORPUSCULAR HGB CONC 32.2 (31.8-35.4); MEAN CORPUSCULAR VOLUME 95.2 fl (81.0-99.0); MONOCYTES # (AUTO) 0.9 K/uL (0.4-2.0); MONOCYTES % (AUTO) 7.2 (0-10); NEUTROPHILS % (AUTO) 81.1; PLATELET COUNT 214 10^3/uL (140-440); WHITE BLOOD COUNT 12.31 K/ul (4.6-10.2)
[2016-10-20 05:53] LABS: ALBUMIN/GLOBULIN RATIO 0.91; ANION GAP 13.6; BILIRUBIN,TOTAL 0.35 mg/dL (0.00-1.20); BUN/CREATININE RATIO 43.65; CALCIUM 8.3 mg/dL (8.2-10.2); CREATININE 1.26 mg/dL (0.60-1.30); POTASSIUM 5.6 mmol/L (3.5-5.10); TOTAL PROTEIN 6.3 g/dL (5.8-8.1)
[2016-10-20] MEDS: CARDIZEM PO SCH ×3 (06:09→20:50)
[2016-10-20] MEDS: PERCOCET 7.5-325 PO SCH ×3 (06:09→17:34)
[2016-10-20] MEDS: ZANTAC PO SCH ×2 (06:09→17:34)
[2016-10-20] MEDS: ELIQUIS PO SCH ×2 (10:00→20:52)
[2016-10-20] MEDS: TORADOL IVP SCH ×2 (10:01→21:00)
[2016-10-20] MEDS: LEVAQUIN 250 MG in PREMIX 50 ML D5W 1 BAG IV SCH (10:01)
[2016-10-20] MEDS: MIRALAX PO SCH ×2 (10:01→20:53)
[2016-10-20] MEDS: FERROUS SULFATE PO SCH ×2 (10:02→20:52)
[2016-10-20] MEDS: LANOXIN PO SCH (10:02)
[2016-10-20] MEDS: MYRBETRIQ PO SCH (10:02)
[2016-10-20] MEDS: VITAMIN E PO SCH (10:02)
[2016-10-20] MEDS: ATIVAN PO SCH ×2 (10:02→20:50)
[2016-10-20] MEDS: VITAMIN C PO SCH (10:02)
[2016-10-20] MEDS: DILANTIN PO SCH ×2 (10:03→20:51)
[2016-10-20] MEDS: COLACE PO SCH ×2 (10:03→20:51)
[2016-10-20] MEDS: ZANAFLEX PO SCH ×3 (10:03→20:55)
[2016-10-20] MEDS: COREG PO SCH ×2 (10:04→17:34)
[2016-10-20] MEDS: FLORASTOR PO SCH ×2 (10:04→20:52)
[2016-10-20] MEDS: DESYREL PO SCH (20:51)
[2016-10-20] MEDS: LIPITOR PO SCH (20:52)
[2016-10-21] MEDS: PERCOCET 7.5-325 PO SCH ×5 (00:45→23:21)
[2016-10-21 06:58] LABS: BASOPHILS # (AUTO) 0.1 K/uL (0-0.2); BASOPHILS % (AUTO) 0.3 % (0.0-3.0); EOSINOPHILS # (AUTO) 0.6 K/ul (0.0-0.7); EOSINOPHILS % (AUTO) 4.1 % (0.0-7.0); HEMATOCRIT 30.2 % (37.0-47.0); IMMATURE GRANULOCYTE % (AUTO) 1.9 % (0.0-5.0); LYMPHOCYTES # (AUTO) 1.2 K/uL (0.60-3.4); MEAN CORPUSCULAR HEMOGLOBIN 31.3 pg (27.0-31.0); MEAN CORPUSCULAR HGB CONC 33.1 (31.8-35.4); MEAN CORPUSCULAR VOLUME 94.7 fl (81.0-99.0); MONOCYTES # (AUTO) 0.9 K/uL (0.4-2.0); NEUTROPHILS # (AUTO) 11.8 K/ul (2.0-6.9); NEUTROPHILS % (AUTO) 79.7; PLATELET COUNT 219 10^3/uL (140-440); RED BLOOD COUNT 3.19 10^6/ul (4.20-5.40); WHITE BLOOD COUNT 14.79 K/ul (4.6-10.2)
[2016-10-21 07:28] LABS: ALBUMIN 3.1 g/dL (3.4-5.0); ALBUMIN/GLOBULIN RATIO 0.91; ANION GAP 16.5; BILIRUBIN,TOTAL 0.42 mg/dL (0.00-1.20); BUN/CREATININE RATIO 48.46; CALCIUM 8.5 mg/dL (8.2-10.2); CREATININE 1.3 mg/dL (0.60-1.30); POTASSIUM 5.5 mmol/L (3.5-5.10); TOTAL PROTEIN 6.5 g/dL (5.8-8.1)
[2016-10-21] MEDS: ZOFRAN TAB PO PRN (07:34)
[2016-10-21] MEDS: DEXTROSE 5%-1/2NS IV SOLUTION 1,000 ML IV SCH ×2 (08:57→22:25)
[2016-10-21] MEDS: ELIQUIS PO SCH ×2 (08:57→21:13)
[2016-10-21] MEDS: LEVAQUIN 250 MG in PREMIX 50 ML D5W 1 BAG IV SCH (08:57)
[2016-10-21] MEDS: ATIVAN PO SCH ×2 (08:57→21:13)
[2016-10-21] MEDS: TORADOL IVP SCH ×2 (08:58→21:12)
[2016-10-21] MEDS: FERROUS SULFATE PO SCH ×2 (08:58→21:13)
[2016-10-21] MEDS: CARDIZEM PO SCH ×3 (08:58→21:13)
[2016-10-21] MEDS: ZANAFLEX PO SCH ×3 (08:58→21:13)
[2016-10-21] MEDS: COREG PO SCH ×2 (08:59→17:32)
[2016-10-21 09:16] LABS: DIGOXIN 1.49 ng/mL (1.00-2.00)
[2016-10-21] MEDS: ZANTAC PO SCH ×2 (09:50→17:32)
[2016-10-21] MEDS: COLACE PO SCH ×2 (09:54→21:15)
[2016-10-21] MEDS: FLORASTOR PO SCH ×2 (09:55→21:13)
[2016-10-21] MEDS: VITAMIN E PO SCH (09:55)
[2016-10-21] MEDS: MIRALAX PO SCH ×2 (09:55→20:26)
[2016-10-21] MEDS: VITAMIN C PO SCH (09:55)
[2016-10-21] MEDS: MYRBETRIQ PO SCH (09:56)
[2016-10-21] MEDS: DILANTIN PO SCH ×2 (09:59→21:13)
[2016-10-21 16:13] LABS: OCCULT BLOOD SAMPLE 1 POSITIVE (NEGATIVE)
[2016-10-21 16:14] LABS: OCCULT BLOOD INTERNAL QC 1 INTERNAL QC VALID
[2016-10-21] MEDS: DESYREL PO SCH (21:13)
[2016-10-22 00:02] LABS: OCCULT BLOOD INTERNAL QC 2 INTERNAL QC VALID; OCCULT BLOOD INTERNAL QC 3 INTERNAL QC VALID; OCCULT BLOOD SAMPLE 2 NO SPECIMEN RECEIVED (NEGATIVE); OCCULT BLOOD SAMPLE 3 NO SPECIMEN RECEIVED (NEGATIVE)
[2016-10-22 05:10] LABS: BASOPHILS % (AUTO) 0.2 % (0.0-3.0); EOSINOPHILS # (AUTO) 0.7 K/ul (0.0-0.7); EOSINOPHILS % (AUTO) 4.6 % (0.0-7.0); HEMATOCRIT 28.4 % (37.0-47.0); HEMOGLOBIN 9.6 g/dl (12.0-16.0); IMMATURE GRANULOCYTE % (AUTO) 1.1 % (0.0-5.0); LYMPHOCYTES # (AUTO) 0.9 K/uL (0.60-3.4); LYMPHOCYTES % (AUTO) 5.6 (10.0-50.0); MEAN CORPUSCULAR HEMOGLOBIN 31.3 pg (27.0-31.0); MEAN CORPUSCULAR HGB CONC 33.8 (31.8-35.4); MEAN CORPUSCULAR VOLUME 92.5 fl (81.0-99.0); MONOCYTES # (AUTO) 0.9 K/uL (0.4-2.0); MONOCYTES % (AUTO) 5.5 (0-10); NEUTROPHILS # (AUTO) 13.3 K/ul (2.0-6.9); PLATELET COUNT 213 10^3/uL (140-440); RED BLOOD COUNT 3.07 10^6/ul (4.20-5.40); WHITE BLOOD COUNT 16.04 K/ul (4.6-10.2)
[2016-10-22 05:32] LABS: ALBUMIN 2.7 g/dL (3.4-5.0); ALBUMIN/GLOBULIN RATIO 0.87; ANION GAP 12.8; BILIRUBIN,TOTAL 0.37 mg/dL (0.00-1.20); CALCIUM 7.9 mg/dL (8.2-10.2); CREATININE 0.91 mg/dL (0.60-1.30); POTASSIUM 4.8 mmol/L (3.5-5.10); TOTAL PROTEIN 5.8 g/dL (5.8-8.1)
[2016-10-22 05:33] LABS: BUN/CREATININE RATIO 50.54
[2016-10-22] MEDS: PERCOCET 7.5-325 PO SCH ×4 (05:55→23:09)
[2016-10-22] MEDS: CARDIZEM PO SCH ×3 (05:55→21:39)
[2016-10-22] MEDS: ZANTAC PO SCH ×2 (05:55→16:31)
--- NOTE | 2016-10-22 09:31 | PCM.PROG ---
Attending Provider: ATTENDING PROVIDER: Dr. JESSIE HERRMANN DATE OF SERVICE: 10/22/16 SUBJECTIVE: This 86 year old WHITE/ F was hospitalized 10/17/16. The patient is seen with Caroline, Nurse Practitioner. The patient is alert, lying in bed. She states she feels nauseated as usual. REVIEW OF SYSTEMS: CONSTITUTIONAL: Left-sided weakness. No night sweats. No malaise, lethargy. No fever or chills. HEENT: Eyes: No visual changes. No eye pain. No eye discharge. ENT: No runny nose. No epistaxis. No sinus pain. No odynophagia. No congestion. RESPIRATORY: No cough, no congestion. No hemoptysis. No shortness of breath. CARDIOVASCULAR: No angina symptoms. No CHF symptoms. No atypical chest pain for CAD. No palpitations. No orthopnea.. GASTROINTESTINAL: Poor appetite with nausea. No abdominal pain. No diarrhea or constipation. No hematemesis. No hematochezia. GENITOURINARY: No urgency. No frequency. No dysuria. No hematuria. No obstructive symptoms. No discharge. No pain. No significant abnormal bleeding. MUSCULOSKELETAL: No musculoskeletal pain; no joint swelling. NEUROLOGICAL: Awake, alert, oriented to place and person. No headache. No neck pain. No syncope. No seizures. No dizziness. PSYCHIATRIC: Not anxious. No depression. No suicidal thoughts. No homicidal thoughts. SKIN: No rash. No lesions. No wounds. ENDOCRINE: No unexplained weight loss. No weight gain. HEMATOLOGIC/LYMPHATIC: No anemia. No purpura. No petechiae. No prolonged or excessive bleeding. No palpable lymph nodes. PHYSICAL EXAMINATION: GENERAL: The patient is awake, alert and oriented with some bouts of confusion , lying in bed in no distress. VITAL SIGNS: Temperature 98.8 F, Pulse 80, Respiratory Rate 18, BP 148/91, Pulse Ox 94% HEENT: Head normocephalic, atraumatic. Eyes: Extraocular muscles are intact. Pupils are equal, round and reactive to light and accommodation. Ears: No lesions. Nose appeared normal. Throat: No exudate or erythema. NECK: Supple. No JVD, no carotid bruit. No lymphadenopathy or thyromegaly. LUNGS: Diminished breath sounds. Clear to auscultation. Percussion note normal. Chest symmetrical. HEART: S1, S2, no S3. No murmurs. No cyanosis or clubbing. No ascites. Pulses: Dorsalis pedis and posterior tibial pulses +1 to +2 both sides. ABDOMEN: Soft. Non-tender. Bowel sounds active. No CVA tenderness. No mass felt. EXTREMITIES: No edema. Full range of motion of all extremities, equal. NEUROLOGIC: Left-sided weakness. No headache, no double vision or headache. SKIN: Not dry. Intact. Turgor-normal. LYMPHATIC: No palpable lymph nodes/no lymphedema. MUSCULOSKELETAL: Normal joints with no swelling. Muscle tone is normal. LAB REVIEW: 10/22/16 05:10 10/22/16 05:10 10/22/16 05:10: WBC 16.04 H, RBC 3.07 L, Hgb 9.6 L, Hct 28.4 L, MCV 92.5, MCH 31.3 H, MCHC 33.8, RDW Coeff of Consuelo 13.8, Plt Count 213, Immature Gran % (Auto) 1.1, Neut % (Auto) 83.0, Lymph % (Auto) 5.6 L, [place] % (Auto) 5.5, Eos % (Auto) 4.6, Baso % (Auto) 0.2, Immature Gran # (Auto) 0.2, Neut # 13.3 H, Lymph # 0.9, [place] # 0.9, Eos # 0.7, Baso # 0.0, Sodium 132 L, Potassium 4.8, Chloride 99, Carbon Dioxide 25, Anion Gap 12.8, BUN 46 H, Creatinine 0.91, Estimated GFR ( MDRD) 59.00, BUN/Creatinine Ratio 50.54, Glucose 112, Calcium 7.9 L, Total Bilirubin 0.37, AST 15, ALT 18, Alkaline Phosphatase 69, Total Protein 5.8, Albumin 2.7 L, Globulin 3.1, Albumin/Globulin Ratio 0.87 10/21/16 15:30: Stl Occult Blood (IFOB) Positive, Stool Occult Blood #2 No specimen received, Stool Occult Blood #3 No specimen received 10/21/16 06:45: Digoxin 1.49, Phenytoin 4.43 L ASSESSMENT: 1. UTI 2. ACUTE BRONCHITIS 3. ANEMIA 4. ATRIAL FIBRILLATION 5. CONSTIPATION PLAN: 1. Decadron 1 cc 2. Decrease IV fluids to 40 mL/hr 3. Duonebs twice a day 4. Up to chair Plan and coordination of the patient's care discussed in the presence of Chopping Machine Operator and nurse. CONDITION: Stable SCRIBED BY: Cesario SONGist scribed while in presence of service performed by Dr. JESSIE HERRMANN/CAROLINE BRAUN APRN on 10/22/16 ([id number])
[2016-10-22] MEDS: VITAMIN C PO SCH (09:33)
[2016-10-22] MEDS: LEVAQUIN 250 MG in PREMIX 50 ML D5W 1 BAG IV SCH (09:33)
[2016-10-22] MEDS: VITAMIN E PO SCH (09:33)
[2016-10-22] MEDS: COREG PO SCH ×2 (09:33→16:31)
[2016-10-22] MEDS: DILANTIN PO SCH ×2 (09:33→21:40)
[2016-10-22] MEDS: ELIQUIS PO SCH ×2 (09:33→21:39)
[2016-10-22] MEDS: COLACE PO SCH ×2 (09:33→21:39)
[2016-10-22] MEDS: FLORASTOR PO SCH ×2 (09:34→21:39)
[2016-10-22] MEDS: ATIVAN PO SCH ×2 (09:34→21:39)
[2016-10-22] MEDS: MYRBETRIQ PO SCH (09:34)
[2016-10-22] MEDS: MIRALAX PO SCH ×3 (09:34→22:50)
[2016-10-22] MEDS: ZANAFLEX PO SCH ×3 (09:34→21:40)
[2016-10-22] MEDS: TORADOL IVP SCH ×2 (09:34→21:40)
[2016-10-22] MEDS: FERROUS SULFATE PO SCH ×2 (09:34→21:40)
[2016-10-22] MEDS: DECADRON 4 MG/ML SDV IM SCH (09:35)
[2016-10-22] MEDS ORDERED: PHENERGAN 25 MG/ML VIAL 25 MG in SODIUM CHLORIDE 50 ML IV PRN ×2 (10:23→14:50)
[2016-10-22] MEDS ORDERED: PHENERGAN 25 MG/ML VIAL ONE ×2 (10:31→19:30)
[2016-10-22] MEDS: DEXTROSE 5%-1/2NS IV SOLUTION 1,000 ML IV SCH ×2 (10:41→14:48)
--- NOTE | 2016-10-22 11:43 | PN ---
DATE OF SERVICE: 10/19/16 SUBJECTIVE: 86-year-old female hospitalized with acute bronchitis, pneumonitis. The patient is feeling short of breath. She is also nauseated. The patient also has UTI Proteus. Antibiotics will be changed to Fluoroquinolones. The patient will need steroids and also something for nausea and antitussive should be given to the patient. The patient's condition has deteriorated some this morning. The patient was seen and examined with nurse practitioner. PHYSICAL EXAMINATION: HEENT: Head normocephalic, atraumatic. Eyes: Extraocular muscles are intact. Pupils are equal, round and reactive to light and accommodation. Ears: No lesions. Nose appeared normal. Throat: No exudate or erythema. NECK: Supple. No JVD, no carotid bruit. No lymphadenopathy or thyromegaly. LUNGS: Mild wheeze. Percussion note normal. Chest symmetrical. HEART: S1, S2, no S3. No murmurs. No cyanosis or clubbing. No ascites. Pulses: Dorsalis pedis and posterior tibial pulses +1 to +2 both sides. ABDOMEN: Soft. Nontender. Bowel sounds active. The patient had a BM. No CVA tenderness. No mass felt. EXTREMITIES: No edema. Full range of motion of all extremities, equal. NEUROLOGIC: No focal deficit. Cranial nerves II through XII are grossly intact. No headache, no double vision or headache. SKIN: Not dry. Intact. Turgor - normal. LYMPHATIC: No palpable lymph nodes/no lymphedema. MUSCULOSKELETAL: Normal joints with no swelling. Muscle tone is normal. CONDITION: Stable. TIME SPENT: More than 30 minutes. Plan and coordination of the patient's care discussed in the presence of nurse. ASHLYN
--- NOTE | 2016-10-22 12:35 | PN ---
DATE OF SERVICE: 10/20/16 SUBJECTIVE: 86-year-old white female hospitalized with UTI, fever, acute bronchitis. The patient's condition has improved. The day before yesterday the patient had shortness of breath, abdominal pain which has subsided. The patient's appetite has improved. She is eating well. Today she looks comfortable, oriented to person. No PND, no orthopnea. No fever, no chills. REVIEW OF SYSTEMS: CONSTITUTIONAL: No night sweats. No fatigue, malaise, lethargy. No fever or chills. HEENT: Eyes: No visual changes. No eye pain. No eye discharge. ENT: No runny nose. No epistaxis. No sinus pain. No sore throat. No odynophagia. No congestion. RESPIRATORY: No cough, no congestion. No hemoptysis. No shortness of breath. CARDIOVASCULAR: No angina symptoms. No CHF symptoms. No atypical chest pain for CAD. No palpitations. No PND, no orthopnea. GASTROINTESTINAL: Appetite has improved. No abdominal pain. No nausea or vomiting. No diarrhea or constipation. No hematemesis. No hematochezia. GENITOURINARY: No urgency. No frequency. No dysuria. No hematuria. No obstructive symptoms. No discharge. No pain. No significant abnormal bleeding. MUSCULOSKELETAL: No musculoskeletal pain; no joint swelling. NEUROLOGICAL: No headache. No neck pain. No syncope. No seizures. No dizziness. PSYCHIATRIC: Not anxious. No depression. No suicidal thoughts. No homicidal thoughts. SKIN: No rash. No lesions. No wounds. ENDOCRINE: No unexplained weight loss. No weight gain. HEMATOLOGIC/LYMPHATIC: No anemia. No purpura. No petechiae. No prolonged or excessive bleeding. No palpable lymph nodes. PHYSICAL EXAMINATION: VITAL SIGNS: Temperature 97.8, pulse 74, respiratory rate 18, BP 136/72. Pulse ox 93% on room air. HEENT: Head normocephalic, atraumatic. Eyes: Extraocular muscles are intact. Pupils are equal, round and reactive to light and accommodation. Ears: No lesions. Nose appeared normal. Throat: No exudate or erythema. NECK: Supple. No JVD, no carotid bruit. No lymphadenopathy or thyromegaly. LUNGS: Decreased breath sounds but clear to auscultation. Percussion note normal. Chest symmetrical. HEART: S1, S2, no S3. No murmurs. No cyanosis or clubbing. No ascites. Pulses: Dorsalis pedis and posterior tibial pulses +1 to +2 both sides. ABDOMEN: Soft. Nontender. Bowel sounds active. No CVA tenderness. No mass felt. EXTREMITIES: No edema. Full range of motion of all extremities, equal. NEUROLOGIC: No focal deficit. Cranial nerves II through XII are grossly intact. No headache, no double vision or headache. SKIN: Not dry. Intact. Turgor - normal. LYMPHATIC: No palpable lymph nodes/no lymphedema. MUSCULOSKELETAL: Normal joints with no swelling. Muscle tone is normal. LABS: Hemoglobin 9.5, hematocrit 29, WBC 12,000, normal differential. Creatinine 1.2 , BUN 55, potassium 5.6. ASSESSMENT: 1. UTI SEEMS TO HAVE RESOLVED 2. BRONCHITIS RESOLVING 3. NO CHF. 4. ABDOMINAL PAIN HAS SUBSIDED PLAN: 1. Continue antibiotics. 2. Steroids intermittently. TIME SPENT: More than 30 minutes. CONDITION: Stable Plan and coordination of the patient's care discussed in the presence of nurse. ASHLYN
--- NOTE | 2016-10-22 14:33 | PN ---
DATE OF SERVICE: 10/21/16 SUBJECTIVE: 86-year-old white female hospitalized with UTI, anemia, and bronchitis. The patient's bronchitis seems to be better but the patient had a setback yesterday and this morning she is more comfortable and has no nausea. She still has poor appetite. REVIEW OF SYSTEMS: CONSTITUTIONAL: Weakness, left-sided. No night sweats. No fever or chills. HEENT: Eyes: No visual changes. No eye pain. No eye discharge. ENT: No runny nose. No epistaxis. No sinus pain. No sore throat. No odynophagia. No congestion. RESPIRATORY: No cough. Mild congestion. No hemoptysis. No shortness of breath. CARDIOVASCULAR: No angina symptoms. No CHF symptoms. No atypical chest pain for CAD. No palpitations. No PND, no orthopnea. GASTROINTESTINAL: Appetite note that good. Mild nausea off and on. No abdominal pain. No vomiting. No diarrhea or constipation. No hematemesis. No hematochezia. GENITOURINARY: No urgency. No frequency. No dysuria. No hematuria. No obstructive symptoms. No discharge. No pain. No significant abnormal bleeding. MUSCULOSKELETAL: No musculoskeletal pain; no joint swelling. NEUROLOGICAL: No headache. No neck pain. No syncope. No seizures. No dizziness. PSYCHIATRIC: Not anxious. No depression. No suicidal thoughts. No homicidal thoughts. SKIN: No rash. No lesions. No wounds. ENDOCRINE: No unexplained weight loss. No weight gain. HEMATOLOGIC/LYMPHATIC: Anemia. No purpura. No petechiae. No prolonged or excessive bleeding. No palpable lymph nodes. PHYSICAL EXAMINATION: VITAL SIGNS: Temperature 98.5, pulse 73, BP 156/92, respiratory rate 16, 02 sat 98%. HEENT: Head normocephalic, atraumatic. Eyes: Extraocular muscles are intact. Pupils are equal, round and reactive to light and accommodation. Ears: No lesions. Nose appeared normal. Throat: No exudate or erythema. NECK: Supple. No JVD, no carotid bruit. No lymphadenopathy or thyromegaly. LUNGS: Decreased breath sounds but clear to auscultation. Percussion note normal. Chest symmetrical. HEART: S1, S2, no S3. No murmurs. No cyanosis or clubbing. No ascites. Pulses: Dorsalis pedis and posterior tibial pulses +1 to +2 both sides. ABDOMEN: Soft. Nontender. Bowel sounds active. No CVA tenderness. No mass felt. EXTREMITIES: No edema. Full range of motion of all extremities, equal. NEUROLOGIC: No focal deficit. Cranial nerves II through XII are grossly intact. No headache, no double vision or headache. SKIN: Not dry. Intact. Turgor - normal. LYMPHATIC: No palpable lymph nodes/no lymphedema. MUSCULOSKELETAL: Normal joints with no swelling. Muscle tone is normal. ASSESSMENT: 1. UTI 2. ACUTE BRONCHITIS 3. ANEMIA 4. ATRIAL FIBRILLATION 5. CONSTIPATION PLAN: 1. Protonix 2. IV fluids because of abnormal kidney functions, creatinine 1.2 and BUN 55. 3. Will watch patient for fluid overload. 4. Potassium is 5.6. Will continue to monitor that. 5. The patient may be mildly dehydrated. 6. Will discontiue statin. 7. Will discontinue Lanoxin. 8. Will do Lanoxin level and Dilantin level. 9. Continue Dilantin. 10. Abnormality of electrolytes; will be monitored since cardiovascular status seems to be stable TIME SPENT: More than 30 minutes. Plan and coordination of the patient's care discussed in the presence of nurse. ASHLYN
[2016-10-22] MEDS: DUONEB NEB SCH (19:35)
[2016-10-22] MEDS: DESYREL PO SCH (21:38)
[2016-10-23] MEDS: DEXTROSE 5%-1/2NS IV SOLUTION 1,000 ML IV SCH (00:31)
[2016-10-23 05:02] LABS: BASOPHILS % (AUTO) 0.1 % (0.0-3.0); EOSINOPHILS # (AUTO) 0.1 K/ul (0.0-0.7); EOSINOPHILS % (AUTO) 0.4 % (0.0-7.0); HEMATOCRIT 32.9 % (37.0-47.0); HEMOGLOBIN 11.4 g/dl (12.0-16.0); LYMPHOCYTES % (AUTO) 6.2 (10.0-50.0); MEAN CORPUSCULAR HEMOGLOBIN 31.8 pg (27.0-31.0); MEAN CORPUSCULAR HGB CONC 34.7 (31.8-35.4); MEAN CORPUSCULAR VOLUME 91.6 fl (81.0-99.0); MONOCYTES # (AUTO) 0.8 K/uL (0.4-2.0); MONOCYTES % (AUTO) 4.7 (0-10); NEUTROPHILS # (AUTO) 14.4 K/ul (2.0-6.9); NEUTROPHILS % (AUTO) 87.6; PLATELET COUNT 277 10^3/uL (140-440); RED BLOOD COUNT 3.59 10^6/ul (4.20-5.40); WHITE BLOOD COUNT 16.45 K/ul (4.6-10.2)
[2016-10-23] MEDS: DUONEB NEB SCH ×2 (05:02→17:10)
[2016-10-23 05:34] LABS: ALBUMIN 2.8 g/dL (3.4-5.0); ALBUMIN/GLOBULIN RATIO 0.82; ANION GAP 14.7; BILIRUBIN,TOTAL 0.43 mg/dL (0.00-1.20); BUN/CREATININE RATIO 41.02; CALCIUM 8.2 mg/dL (8.2-10.2); CREATININE 0.78 mg/dL (0.60-1.30); POTASSIUM 4.7 mmol/L (3.5-5.10); TOTAL PROTEIN 6.2 g/dL (5.8-8.1)
[2016-10-23] MEDS: PERCOCET 7.5-325 PO SCH ×3 (05:34→17:24)
[2016-10-23] MEDS: CARDIZEM PO SCH ×3 (05:34→21:16)
[2016-10-23] MEDS: ZANTAC PO SCH ×2 (05:35→17:25)
[2016-10-23] MEDS: ELIQUIS PO SCH ×2 (08:50→21:17)
[2016-10-23] MEDS: MIRALAX PO SCH ×2 (08:50→21:18)
[2016-10-23] MEDS: LEVAQUIN 250 MG in PREMIX 50 ML D5W 1 BAG IV SCH (08:50)
[2016-10-23] MEDS: MYRBETRIQ PO SCH (08:51)
[2016-10-23] MEDS: COREG PO SCH ×2 (08:51→17:26)
[2016-10-23] MEDS: DILANTIN PO SCH ×2 (08:51→21:17)
[2016-10-23] MEDS: COLACE PO SCH ×2 (08:51→21:16)
[2016-10-23] MEDS: ATIVAN PO SCH ×2 (08:51→21:16)
[2016-10-23] MEDS: TORADOL IVP SCH ×2 (08:52→21:16)
[2016-10-23] MEDS: DECADRON 4 MG/ML SDV IM SCH (08:52)
--- NOTE | 2016-10-23 09:20 | PN ---
DATE OF SERVICE: 10/22/16 SUBJECTIVE: The patient is an 86 year old white female hospitalized with acute bronchitis, UTI and anemia. The patient's nausea still persists but she is better. She ate breakfast this morning. The patient was sitting up in the chair today. She is tired. PHYSICAL EXAMINATION: GENERAL: The patient is oriented to person, recognized me and oriented to place. VITAL SIGNS: Temperature 98.8, pulse 80, respiratory rate 18, blood pressure 148 /90 and pulse ox 94%. HEENT: Head normocephalic, atraumatic. Eyes: Extraocular muscles are intact. Pupils are equal, round and reactive to light and accommodation. Ears: No lesions. Nose appeared normal. Throat: No exudate or erythema. NECK: Supple. No JVD, no carotid bruit. No lymphadenopathy or thyromegaly. LUNGS: Decreased breath sounds. Clear to auscultation. Percussion note normal. Chest symmetrical. HEART: S1, S2, no S3. No murmurs. No cyanosis or clubbing. No ascites. Pulses: Dorsalis pedis and posterior tibial pulses +1 to +2 both sides. ABDOMEN: Soft. Nontender. Bowel sounds active. No CVA tenderness. No mass felt. EXTREMITIES: No edema. Full range of motion of all extremities, equal. NEUROLOGIC: No focal deficit. Cranial nerves II through XII are grossly intact. No headache, no double vision or headache. SKIN: Not dry. Intact. Turgor - normal. LYMPHATIC: No palpable lymph nodes/no lymphedema. MUSCULOSKELETAL: Normal joints with no swelling. Muscle tone is normal. ASSESSMENT: 1. Bronchitis seems to be resolved. 2. Cardiovascular status stable 3. Main problem GI likely from inactivities and staying in the bed. PLAN: 1. Will give 1 cc Decadron 2. DUO NEBS Twice a day 3. Decrease the IV fluids to 40cc per hour. CONDITION: Stable TIME SPENT: More than 30 minutes. Plan and coordination of the patient's care discussed in the presence of nurse. ASHLYN
[2016-10-23] MEDS ORDERED: HYZAAR 50-12.5 MG TAB PO SCH (10:00)
--- NOTE | 2016-10-23 14:26 | PN ---
DATE OF SERVICE: 10/23/16 SUBJECTIVE: 86 year old white female hospitalized with acute bronchitis and urinary tract infection. The patient's condition has steadily improved. This morning she is still mildly nauseated, but looks a lot better and alert. The patient was seen and examined with the Product Distribution Specialist. REVIEW OF SYSTEMS: CONSTITUTIONAL: No night sweats. No fatigue, malaise, lethargy. No fever or chills. HEENT: Eyes: No visual changes. No eye pain. No eye discharge. ENT: No runny nose. No epistaxis. No sinus pain. No sore throat. No odynophagia. No congestion. RESPIRATORY: No cough, no congestion. No hemoptysis. No shortness of breath. CARDIOVASCULAR: No angina symptoms. No CHF symptoms. No atypical chest pain for CAD. No palpitations. No orthopnea. GASTROINTESTINAL: No abdominal pain. Mild nausea. No vomiting. Appetite is improving. Hydration status has improved. No diarrhea or constipation. No hematemesis. No hematochezia. GENITOURINARY: No urgency. No frequency. No dysuria. No hematuria. No obstructive symptoms. No discharge. No pain. No significant abnormal bleeding. MUSCULOSKELETAL: No musculoskeletal pain; no joint swelling. NEUROLOGICAL: No headache. No neck pain. No syncope. No seizures. No dizziness. PSYCHIATRIC: Not anxious. No depression. No suicidal thoughts. No homicidal thoughts. SKIN: No rash. No lesions. No wounds. ENDOCRINE: No unexplained weight loss. No weight gain. HEMATOLOGIC/LYMPHATIC: No anemia. No purpura. No petechiae. No prolonged or excessive bleeding. No palpable lymph nodes. PHYSICAL EXAMINATION: GENERAL: The patient is oriented to person and place. VITAL SIGNS: Temperature 97.7, pulse 88, respiratory rate 19, blood pressure 170/97, pulse ox 99%. HEENT: Head normocephalic, atraumatic. Eyes: Extraocular muscles are intact. Pupils are equal, round and reactive to light and accommodation. Ears: No lesions. Nose appeared normal. Throat: No exudate or erythema. NECK: Supple. No JVD, no carotid bruit. No lymphadenopathy or thyromegaly. LUNGS: Decreased breath sounds, but clear. Percussion note normal. Chest symmetrical. HEART: S1, S2, no S3. No murmurs. No cyanosis or clubbing. No ascites. Pulses: Dorsalis pedis and posterior tibial pulses +1 to +2 both sides. ABDOMEN: Soft. Nontender. Bowel sounds active. No CVA tenderness. No mass felt. EXTREMITIES: No edema. Full range of motion of all extremities, equal. NEUROLOGIC: No focal deficit. Cranial nerves II through XII are grossly intact. No headache, no double vision or headache. SKIN: Not dry. Intact. Turgor - normal. LYMPHATIC: No palpable lymph nodes/no lymphedema. MUSCULOSKELETAL: Normal joints with no swelling. Muscle tone is normal. LABS: Hemoglobin 11.4, hematocrit 32, WBC 16,000 with normal differential. Creatinine 0.7, BUN 32, potassium 4.7. ASSESSMENT: 1. ACUTE BRONCHITIS 2. DEHYDRATION 3. HYPERTENSION 4. DEMENTIA 5. URINARY TRACT INFECTION PLAN: 1. Continue IV antibiotics 2. Phenergan to be continued for nausea. Likely the patient is curled up in the bed with hiatal hernia. 3. We will continue to give 1 cc Decadron daily. 4. Saline lock. 5. The patient will be sitting up in the chair eating. 6. The patient has been taken off of Pravastatin, Ferrous sulfate and Zanaflex. 7. We will increase the Coreg to 12.5 twice a day. 8. Cardizem will be made 90 twice a day. 9. Cozaar 50 mg p.o. daily. 10. Discontinue IV fluids. 11. Stop Lopressor/Vasotec. TIME SPENT: More than 30 minutes. Plan and coordination of the patient's care discussed in the presence of nurse. ASHLYN
[2016-10-23] MEDS ORDERED: FERROUS SULFATE PO SCH (17:00)
[2016-10-23] MEDS ORDERED: COREG PO SCH (17:30)
[2016-10-23] MEDS ORDERED: CARDIZEM PO SCH (21:00)
[2016-10-23] MEDS: DESYREL PO SCH (21:17)
[2016-10-24] MEDS: PERCOCET 7.5-325 PO SCH ×2 (00:08→05:31)
[2016-10-24] MEDS: DUONEB NEB SCH (05:08)
[2016-10-24 05:25] LABS: BASOPHILS % (AUTO) 0.1 % (0.0-3.0); EOSINOPHILS # (AUTO) 0.4 K/ul (0.0-0.7); EOSINOPHILS % (AUTO) 2.6 % (0.0-7.0); HEMATOCRIT 28.5 % (37.0-47.0); HEMOGLOBIN 9.8 g/dl (12.0-16.0); IMMATURE GRANULOCYTE % (AUTO) 0.8 % (0.0-5.0); LYMPHOCYTES # (AUTO) 1.5 K/uL (0.60-3.4); LYMPHOCYTES % (AUTO) 9.2 (10.0-50.0); MEAN CORPUSCULAR HEMOGLOBIN 31.4 pg (27.0-31.0); MEAN CORPUSCULAR HGB CONC 34.4 (31.8-35.4); MEAN CORPUSCULAR VOLUME 91.3 fl (81.0-99.0); MONOCYTES # (AUTO) 0.8 K/uL (0.4-2.0); NEUTROPHILS # (AUTO) 13.8 K/ul (2.0-6.9); NEUTROPHILS % (AUTO) 82.3; PLATELET COUNT 266 10^3/uL (140-440); RED BLOOD COUNT 3.12 10^6/ul (4.20-5.40); WHITE BLOOD COUNT 16.74 K/ul (4.6-10.2)
[2016-10-24] MEDS: ZANTAC PO SCH (05:31)
[2016-10-24 05:40] LABS: ALBUMIN 2.7 g/dL (3.4-5.0); ALBUMIN/GLOBULIN RATIO 0.96; ANION GAP 16.4; BILIRUBIN,TOTAL 0.38 mg/dL (0.00-1.20); BUN/CREATININE RATIO 39.72; CALCIUM 8.1 mg/dL (8.2-10.2); CREATININE 0.73 mg/dL (0.60-1.30); POTASSIUM 4.4 mmol/L (3.5-5.10); TOTAL PROTEIN 5.5 g/dL (5.8-8.1)
[2016-10-24] MEDS ORDERED: COZAAR PO SCH (09:00)
[2016-10-24] MEDS ORDERED: HYDROCHLOROTHIAZIDE PO SCH (09:00)
[2016-10-24] MEDS: LEVAQUIN 250 MG in PREMIX 50 ML D5W 1 BAG IV SCH (09:05)
[2016-10-24] MEDS: MYRBETRIQ PO SCH (09:05)
[2016-10-24] MEDS: ELIQUIS PO SCH (09:05)
[2016-10-24] MEDS: ATIVAN PO SCH (09:06)
[2016-10-24] MEDS: DILANTIN PO SCH (09:06)
[2016-10-24] MEDS: MIRALAX PO SCH (09:07)
[2016-10-24] MEDS: TORADOL IVP SCH (09:07)
[2016-10-24] MEDS: CARDIZEM PO SCH ×2 (09:07)
[2016-10-24] MEDS: COLACE PO SCH (09:07)
[2016-10-24] MEDS: COREG PO SCH (09:07)
[2016-10-24 09:40] VITALS: BP 148/82; TEMP 98.1
--- NOTE | 2016-10-24 11:34 | CM.DICTOOL ---
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 Dementia LAST VITALS Temp Pulse Resp BP Pulse Ox 98.1 F 94 H 20 148/82 H 98 10/24/16 09:39 10/24/16 09:39 10/24/16 09:39 10/24/16 09:39 10/24/16 09:39 ACTIVE HOME MEDICATIONS Acetaminophen (Tylenol) 325 mg PO Q4H PRN PRN Reason: Fever >101 Apixaban (Eliquis) 2.5 mg PO BID [facility] Last Admin: 10/24/16 09:05 Dose: 2.5 mg Ferrous Sulfate (Ferrous Sulfate) 324 mg PO QPM [facility] (DOSE CHANGED TO DAILY) Last Admin: 10/23/16 17:25 Dose: 324 mg Lorazepam (Ativan) 0.5 mg PO BID [facility] Last Admin: 10/24/16 09:06 Dose: 0.5 mg Magnesium Hydroxide (Milk Of Magnesia) 30 ml PO DAILY PRN PRN Reason: CONSTIPATION Mirabegron (Myrbetriq) 50 mg PO DAILY [facility] Last Admin: 10/24/16 09:05 Dose: 50 mg Ondansetron HCl (Zofran Tab) 4 mg PO BID PRN PRN Reason: Nausea / Vomiting Last Admin: 10/21/16 07:34 Dose: 4 mg Oxycodone/Acetaminophen (Percocet 7.5-325) 1 tab PO Q6HR [facility] Last Admin: 10/24/16 05:31 Dose: 1 tab Phenytoin Sodium (Dilantin) 100 mg PO BID [facility] Last Admin: 10/24/16 09:06 Dose: 100 mg Polyethylene Glycol (Miralax) 17 gm PO DAILY PRN Last Admin: Ranitidine HCl (Zantac) 150 mg PO BIDAC [facility] Last Admin: 10/24/16 05:31 Dose: 150 mg Trazodone HCl (Desyrel) 50 mg PO BEDTIME [facility] Last Admin: 10/23/16 21:17 Dose: 50 mg ALLERGIES acetaminophen [From Lortab] Adverse Reaction (Verified 10/17/16 09:54) alprazolam [From Xanax] Adverse Reaction (Verified 10/17/16 09:54) codeine Adverse Reaction (Verified 10/17/16 09:54) hydrocodone bitartrate [From Lortab] Adverse Reaction (Verified 10/17/16 09:54) venlafaxine HCl [From Effexor] Adverse Reaction (Verified 10/17/16 09:54) IV DYE Adverse Reaction (Uncoded 10/17/16 09:54) TAMXENE Adverse Reaction (Uncoded 10/17/16 09:54) NEW PRESCRIPTIONS: NEW MEDICATIONS: COREG 12.5 mg BID with meals (this is a medication change) CARDIZEM 90 mg BID (this is a medication change) HYZAAR 100/12.5 1 tablet daily LEVAQUIN 250 mg daily for 5 days DUONEBS 1 nebulizer treatment BID COLACE 100 mg BID STOP THE FOLLOWING MEDICATIONS: Ascorbate Calcium (Vitamin C) Atrovastatin (Lipitor) Vitamin E Digoxin Saccharomyces Boulardii Carvedilol 6.25 mg BID Diltiazem HCL 60 mg every 8 hours Tizanidine (Zanaflex) SMOKING: Not Applicable DISEASE SPECIFIC EDUCATION: Not Applicable LAB REVIEW: 10/24/16 05:15 10/24/16 05:15 10/24/16 05:15: WBC 16.74 H, RBC 3.12 L, Hgb 9.8 L, Hct 28.5 L, MCV 91.3, MCH 31.4 H, MCHC 34.4, RDW Coeff of Consuelo 14.1, Plt Count 266, Immature Gran % (Auto) 0.8, Neut % (Auto) 82.3, Lymph % (Auto) 9.2 L, [place] % (Auto) 5.0, Eos % (Auto) 2.6, Baso % (Auto) 0.1, Immature Gran # (Auto) 0.1, Neut # 13.8 H, Lymph # 1.5, [place] # 0.8, Eos # 0.4, Baso # 0.0, Sodium 135 L, Potassium 4.4, Chloride 100, Carbon Dioxide 23, Anion Gap 16.4, BUN 29 H, Creatinine 0.73, Estimated GFR ( MDRD) 76.00, BUN/Creatinine Ratio 39.72, Glucose 96, Calcium 8.1 L, Total Bilirubin 0.38, AST 15, ALT 12, Alkaline Phosphatase 61, Total Protein 5.5 L, Albumin 2.7 L, Globulin 2.8, Albumin/Globulin Ratio 0.96 PLAN: Discharge to [place] Diet:Regular Activity: Up to chair as tolerated Turn every 2 hours Incontinent care prn Decubitus Precautions Elevate head of bed during meals and for 30 minutes after meals Elevate head of bed during med pass and for 30 minutes following Contact precautions for ESBL positive urine CBC, CMP every 3 months Lipids, Dilantin, TSH every 6 months Caroline Dill APRN to see on assisted rounds in 7-10 days Mrs. Dowell is alert and oriented x 3. She is cooperative with care. She feeds herself with assistance from the nursing staff. Meal intakes have been poor; 10- 25%. Liquid intake is good. She is dependent for ADL's and transfers. She requires assistance of 2-3 for transfers to the chair due to severe weakness to the left side and left foot drop. She is incontinent of bowel and bladder. Skin is intact and free of open wounds. Marcel Evangelista MD
--- NOTE | 2016-10-24 13:17 | PCM.PROG ---
Attending Provider: ATTENDING PROVIDER: Dr. JESSIE HERRMANN DATE OF SERVICE: 10/24/16 SUBJECTIVE: This 86 year old WHITE/ F was hospitalized 10/17/16. The patient is hospitalized with multiple medical problems like acute bronchitis, UTI and dehydration. Kidney functions are better. Mental status has improved. Appetite is fair. No nausea. BP is more or less acceptable with changes in medications. REVIEW OF SYSTEMS: CONSTITUTIONAL: Weakness as usual. No night sweats. No fever or chills. HEENT: Eyes: No visual changes. No eye pain. No eye discharge. ENT: No runny nose. No epistaxis. No sinus pain. No odynophagia. No congestion. RESPIRATORY: No cough, no congestion. No hemoptysis. No shortness of breath. CARDIOVASCULAR: No angina symptoms. No CHF symptoms. No atypical chest pain for CAD. No palpitations. No orthopnea.. GASTROINTESTINAL: No abdominal pain. No nausea or vomiting. No diarrhea or constipation. No hematemesis. No hematochezia. GENITOURINARY: No urgency. No frequency. No dysuria. No hematuria. No obstructive symptoms. No discharge. No pain. No significant abnormal bleeding. MUSCULOSKELETAL: No musculoskeletal pain; no joint swelling. NEUROLOGICAL: Awake, alert, oriented to time, place and person. No headache. No neck pain. No syncope. No seizures. No dizziness. PSYCHIATRIC: Not anxious. No depression. No suicidal thoughts. No homicidal thoughts. SKIN: No rash. No lesions. No wounds. ENDOCRINE: No unexplained weight loss. No weight gain. HEMATOLOGIC/LYMPHATIC: No anemia. No purpura. No petechiae. No prolonged or excessive bleeding. No palpable lymph nodes. PHYSICAL EXAMINATION: GENERAL: The patient is awake, alert and oriented, lying in bed in no distress. VITAL SIGNS: Temperature 97.7 F, Pulse 88, Respiratory Rate 20, BP 154/94, Pulse Ox 95% HEENT: Head normocephalic, atraumatic. Eyes: Extraocular muscles are intact. Pupils are equal, round and reactive to light and accommodation. Ears: No lesions. Nose appeared normal. Throat: No exudate or erythema. NECK: Supple. No JVD, no carotid bruit. No lymphadenopathy or thyromegaly. LUNGS: Diminished breath sounds but clear to auscultation. Percussion note normal. Chest symmetrical. HEART: S1, S2, no S3. No murmurs. No cyanosis or clubbing. No ascites. Pulses: Dorsalis pedis and posterior tibial pulses +1 to +2 both sides. ABDOMEN: Soft. Non-tender. Bowel sounds active. No CVA tenderness. No mass felt. EXTREMITIES: No edema. Foot drop is present on left lower extremity. Full range of motion of all extremities, equal. NEUROLOGIC: No focal deficit. Cranial nerves II through XII are grossly intact. No headache, no double vision or headache. SKIN: Not dry. Intact. Turgor-normal. LYMPHATIC: No palpable lymph nodes/no lymphedema. MUSCULOSKELETAL: Normal joints with no swelling. Muscle tone is normal. LAB REVIEW: 10/24/16 05:15 10/24/16 05:15 10/24/16 05:15: WBC 16.74 H, RBC 3.12 L, Hgb 9.8 L, Hct 28.5 L, MCV 91.3, MCH 31.4 H, MCHC 34.4, RDW Coeff of Consuelo 14.1, Plt Count 266, Immature Gran % (Auto) 0.8, Neut % (Auto) 82.3, Lymph % (Auto) 9.2 L, [place] % (Auto) 5.0, Eos % (Auto) 2.6, Baso % (Auto) 0.1, Immature Gran # (Auto) 0.1, Neut # 13.8 H, Lymph # 1.5, [place] # 0.8, Eos # 0.4, Baso # 0.0, Sodium 135 L, Potassium 4.4, Chloride 100, Carbon Dioxide 23, Anion Gap 16.4, BUN 29 H, Creatinine 0.73, Estimated GFR ( MDRD) 76.00, BUN/Creatinine Ratio 39.72, Glucose 96, Calcium 8.1 L, Total Bilirubin 0.38, AST 15, ALT 12, Alkaline Phosphatase 61, Total Protein 5.5 L, Albumin 2.7 L, Globulin 2.8, Albumin/Globulin Ratio 0.96 ASSESSMENT: 1. Chronic bronchitis, aspiration likely 2. Dehydration resolved 3. Hypertension 4. Dementia 5. Urinary tract infection PLAN: 1. Discharge to [facility] 2. Continue Zofran 3. Levaquin 250 mg p.o. for 5 days 4. Increase Hyzaar to 100/12.5 mg daily 5. Statin discontinued 6. Zanaflex discontinued 7. Florastor discontinued 8. Digoxin stopped 9. Switched to Cardiazem 90 mg twice a day 10. Continue Duonebs 11. Encourage the patient to eat more and drink more fluids Plan and coordination of the patient's care discussed in the presence of [employer] Specialist and nurse. CONDITION: Stable SCRIBED BY: MIRYAM MINER Content Developer scribed while in presence of service performed by Dr. JESSIE HERRMANN on 10/24/16 ([id number])
--- NOTE | 2016-10-31 13:48 | DS ---
DATE OF SERVICE: 10/24/16 FINAL DIAGNOSIS: 1. Acute bronchitis 2. Dehydration with renal azotemia 3. UTI, Proteus Mirabilis ESBL positive 4. Anemia 5. Atrial fibrillation, on Eliquis 6. Hypertension 7. Constipation 8. High lipids 9. 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 DISCHARGE INSTRUCTIONS: Discharge to [place]. Elevate head of bed during meals and for 30 minutes after meals. Elevated head of bed during medication pass and for 30 minutes following. Contact precautions for ESBL positive urine. CBC, CMP every 3 months. Lipids, Dilantin, TSH every 6 months. Caroline Dill APRN to see on prison rounds in 7-10 days. MEDICATIONS AT DISCHARGE: Tylenol 325mg PO Q 4 hours PRN Eliquis 2.5mg PO twice a day Ferrous Sulfate 324mg PO QPM Ativan 0.5mg PO twice a day Milk of Magnesia 30ml PO daily PRN Myrbetriq 50mg PO daily Zofran 4mg PO twice a day PRN Percocet 7.5-325 PO Q6 hours Dilantin 100mg PO twice a day Miralax 17gram PO daily Zantac 150mg PO twice a day Desyrel 50mg PO bedtime ALLERGIES: Acetaminophen Alprazolam Codeine Hydrocodone Bitartrate Venlafaxine IV Dye Tamxene NEW PRESCRIPTIONS: Coreg 12.5mg PO twice a day with meals (this is a medication change) Cardizem 90mg PO twice a day ( this is a medication change) Hyzaar 100-12.5 one tablet daily Levaquin 250ng daily for 5 days DUO NEBS 1 nebulizer treatment twice a day Colace 100mg twice a day STOP THE FOLLOWING MEDICATION: Ascorbate Calcium Atorvastatin Vitamin E Digoxin Saccharomyces Boylardii Carvedilol 6.25mg twice a day Diltazem HCL 60mg Every 8 hours Tizanidine DIET INSTRUCTIONS: Regular ACTIVITY: Up to chair as tolerated. Turn every 2 hours Incontinent care PRN Decubitus Precautions SMOKING: Not applicable DISEASE SPECIFIC EDUCATION: Not applicable HOSPITAL COURSE: The patient is an 86 year old white female hospitalized with UTI, acute bronchitis and fever. The patient during the stay in the hospital was treated with IV antibiotics Levaquin and was also given steroids intermittently. NEBS treatment was started later on. The patient's condition has improved. This morning she is feeling a lot better for past 12-24 hours. She doesn't have any nausea and her appetite has improved some. Her hydration status has improved and her mental status she is oriented to person and place. There were several changes made to her medications as mentioned above. The patient has been taken off several medications, doses of several medications have been changed. CONDITION: Stable. TIME SPENT: More than 60 minutes. PAULD
--- NOTE | 2016-10-31 13:51 | PN ---
10/17/16: Level 5 10/18/16: Intermediate 10/19/16: Intermediate 10/20/16: Intermediate 10/21/16: Intermediate 10/22/16: Intermediate 10/23/16: Intermediate 10/24/16: D as in discharge MTDD
== END 2016-10-24 12:35 | DRG 202 ==
LOC: ED 09:33 → MEDSURG A 11:16
PROVIDERS: ADMIT Internal Medicine; ATTEND Internal Medicine
DX: J20.9 Acute bronchitis, unspecified (principal); N39.0 Urinary tract infection, site not specified; E86.0 Dehydration; R79.89 Other specified abnormal findings of blood chemistry; I51.7 Cardiomegaly; I34.0 Nonrheumatic mitral (valve) insufficiency; I10 Essential (primary) hypertension; K59.00 Constipation, unspecified; I25.10 Atherosclerotic heart disease of native coronary artery without angina pectoris; I50.9 Heart failure, unspecified; E78.5 Hyperlipidemia, unspecified; K21.9 Gastro-esophageal reflux disease without esophagitis; K44.9 Diaphragmatic hernia without obstruction or gangrene; R11.0 Nausea; R06.02 Shortness of breath; R10.9 Unspecified abdominal pain; F41.8 Other specified anxiety disorders; F03.90 Unspecified dementia, unspecified severity, without behavioral disturbance, psychotic disturbance, mood disturbance, and anxiety; D64.9 Anemia, unspecified; I48.91 Unspecified atrial fibrillation; R05 Cough; B96.4 Proteus (mirabilis) (morganii) as the cause of diseases classified elsewhere; Z79.01 Long term (current) use of anticoagulants; Z79.899 Other long term (current) drug therapy; Z16.11 Resistance to penicillins
CPT/HCPCS: 36415; 80053; 80162; 80185; 81001; 82272; 82550; 82803; 83605; 84145; 84484; 85025; 85610; 85730; 87040; 87081; 87086; 87186; 93005; 93010; 94640; 99223; 99232; 99239; 99284

== ENCOUNTER 2016-12-16 19:36 | Emergency (ER) ==
[2016-12-16 19:44] VITALS: BP 100/57; TEMP 97.3; BMI 24.7
[2016-12-16] MEDS ORDERED: DULCOLAX RC STA (19:44)
[2016-12-16] MEDS ORDERED: CITRATE OF MAGNESIA PO STA (19:44)
--- NOTE | 2016-12-16 20:12 | CT ---
EXAM: CT of the abdomen and pelvis without contrast. HISTORY: Constipation. PROCEDURE: Contiguous axial CT images of the abdomen and pelvis without contrast with coronal and sa gittal reformats. FINDINGS: There are small bilateral pleural effusions. There is minimal bibasilar atelectasis. The h eart is mildly enlarged. There are fluid density cysts in the liver. The gallbladder is surgically absent. The pancreas, spleen, right adrenal gland and kidneys are normal in appearance. There is a 2.4 cm left benign adrenal adenoma. The abdominal aorta is within normal limits in diameter. There is a small hiatal hernia. There is a nonspecific bowel gas pattern. No bowel obstruction. The appendi x is not visualized. There is fecal stasis in the colon. There is fecal impaction in the rectum whi ch measures 8.1 x 9.5 cm on a single axial image. No free fluid or free air in the abdomen or pelvis . The bladder is minimally filled with no abnormality identified. The uterus is unremarkable. Ther e is a 6.9 x 5.8 cm fluid density cyst in the right adnexa. There are degenerative changes in the sp ine. Impression: Fecal stasis in the colon and fecal impaction in the rectum as described. Nonspecific bowel gas pattern. Small hiatal hernia. 6.9 x 5.8 cm simple right adnexal cyst. Cholecystectomy. Small bilateral pleural effusions. Minimal bibasilar atelectasis. Cardiomegaly.
--- NOTE | 2016-12-16 20:26 | ED.PDOC ---
General ED Provider: Dr. SHERRY DIAZ-ER Chief Complaint: Abdominal Pain Stated Complaint: no bm for several days Time Seen by Physician: 19:40 Mode of Arrival: Ambulance Information Source: Patient, [facility] Exam Limitations: No limitations Primary Care Provider: JESSIE POSADA Nursing and Triage Documentation Reviewed and Agree: Yes GI Complaint Exam - Rectal Complaint/Exam Patient Complains of: Reports: Rectal pain Onset/Duration: several days Symptoms Are: Still present Timing: Constant Initial Severity: Mild Current Severity: Mild Location: Reports: Rectal Character: Reports: Dull, Pressure Alleviating: Reports: None Associated Signs and Symptoms: Denies: Rectal bleeding, Blood-streaked stool, Black tarry stool, Bright red blood w/ stool, Blood without stool Rectal Exam: Present: Fecal impaction. Absent: Fluctuant rectal mass Differential Diagnoses: Fecal Impaction Review of Systems - Review Of Systems Constitutional: Reports: No symptoms Eyes: Reports: No symptoms Ears, Nose, Mouth, Throat: Reports: No symptoms Respiratory: Reports: No symptoms Cardiac: Reports: No symptoms GI: Reports: No symptoms : Reports: No symptoms Musculoskeletal: Reports: No symptoms Skin: Reports: No symptoms Neurological: Reports: No symptoms Endocrine: Reports: No symptoms Hematologic/Lymphatic: Reports: No symptoms All Other Systems: Reviewed and Negative Past Medical History - Past Medical History Previously Healthy: Yes Endocrine: Reports: None Cardiovascular: Reports: None Respiratory: Reports: None Hematological: Reports: Anemia Gastrointestinal: Reports: None Genitourinary: Reports: None Neuro/Psych: Reports: None Musculoskeletal: Reports: None Cancer: Reports: None Last Menstrual Period: UNKNOWN - Surgical History General Surgical History: Reports: None - Family History Family History: Reports: None - Social History Smoking Status: Former smoker, Never smoker Hx Substance Use: No Alcohol Screening: None - Immunizations Tetanus Shot up to Date: Yes Physical Exam - Physical Exam Appearance: Well-appearing, No pain distress, Well-nourished Eyes: KESHIA, EOMI, Conjunctiva clear ENT: Ears normal, Nose normal, Oropharynx normal Neck: Supple Respiratory: Airway patent, Breath sounds clear, Breath sounds equal, Respirations nonlabored Cardiovascular: RRR, Pulses normal, No rub, No murmur GI/: Soft, Nontender, No masses, Bowel sounds normal, No Organomegaly Musculoskeletal: Normal strength, ROM intact, No edema, No calf tenderness Skin: Warm, Dry, Normal color Neurological: Sensation intact, Motor intact, Reflexes intact, Cranial nerves intact, Alert, Oriented Psychiatric: Affect appropriate, Mood appropriate Interpretation - Radiology Interpretation Radiology Interpretation By: Radiologist Radiology Results: Positive Exam Interpreted: CT Scan ("fecal impaction") Procedures - Additional Procedures Additional Procedures: Other (she has large fecal impaction in rectal vault-- she was disimpacted in the er and sent to the alf for fleets enemas till clear) Critical Care Note - Critical Care Note Total Time (mins): 0 Course - Course Orders, Labs, Meds: Orders Category Date Time Status Bisacodyl [Dulcolax] MEDS 12/16/16 19:44 Discontinued 10 mg RC ONCE STA Magnesium Citrate [Citrate of Magnesia] MEDS 12/16/16 19:44 Discontinued 10 oz PO ONCE STA CT ABDOMEN/PELVIS WO CONTRAST Stat RADS 12/16/16 19:43 Completed Medications Discontinued Medications Generic Name Dose Route Start Last Admin Trade Name Freq PRN Reason Stop Dose Admin Bisacodyl 10 mg 12/16/16 19:44 12/16/16 20:11 Dulcolax RC 12/16/16 19:45 10 mg ONCE STA Administration Magnesium Citrate 10 oz 12/16/16 19:44 12/16/16 20:11 Citrate Of Magnesia PO 12/16/16 19:45 10 oz ONCE STA Administration Vital Signs: Temp Pulse Resp BP Pulse Ox 12/16/16 19:36 97.3 F L 84 18 100/57 L 95 Departure - Departure Time of Disposition: 20:27 Disposition: TRANSFER SNF Discharge Problem: Fecal impaction Instructions: Fecal Impaction (ED), Obstipation (ED) Condition: Good Pt referred to PMD for follow-up: Yes Additional Instructions: give fleets enemas with mineral oiltill clear --talk to dr posada tomorrow about bowel regimen Allergies/Adverse Reactions: Allergies acetaminophen [From Lortab] Adverse Reaction (Verified 10/17/16 09:54) No allergy to acetaminophen only hydrocodone. alprazolam [From Xanax] Adverse Reaction (Verified 10/17/16 09:54) codeine Adverse Reaction (Verified 10/17/16 09:54) hydrocodone bitartrate [From Lortab] Adverse Reaction (Verified 10/17/16 09:54) venlafaxine HCl [From Effexor] Adverse Reaction (Verified 10/17/16 09:54) IV DYE Adverse Reaction (Uncoded 10/17/16 09:54) TAMXENE Adverse Reaction (Uncoded 10/17/16 09:54) Home Medications: Ambulatory Orders Acetaminophen [Tylenol] 325 mg PO Q4H PRN 03/06/14 Lorazepam [Ativan] 0.5 mg PO BID 03/06/14 Mirabegron [Myrbetriq] 50 mg PO DAILY 03/06/14 Ondansetron HCl [Zofran Tab] 4 mg PO BID PRN 03/06/14 Phenytoin Cap [Dilantin] 100 mg PO BID 03/06/14 Polyethylene Glycol 3350 [Miralax] 17 gm PO DAILY PRN 03/06/14 Ranitidine HCl [Zantac] 150 mg PO BIDAC 03/06/14 Trazodone HCl 50 mg PO BEDTIME 03/06/14 Apixaban [Eliquis] 2.5 mg PO BID tablet 03/11/14 Magnesium Hydroxide [Milk of Magnesia] 1 cu PO DIRECTED PRN 10/17/16 Oxycodone HCl/Acetaminophen [Percocet 7.5-325 mg Tablet] 1 tab PO Q6HR 10/17/16 Carvedilol [Coreg] 12.5 mg PO BID #60 tablet 10/24/16 Diltiazem HCl [Cardizem] 90 mg PO BID #60 tablet 10/24/16 Docusate Sodium [Colace] 100 mg PO BID #1 capsule 10/24/16 Ipratropium/Albuterol Neb [Duoneb] 1 vial NEB RTBID #1 vial.neb 10/24/16 Levofloxacin [Levaquin] 250 mg PO DAILY #5 tablet 10/24/16 Losartan/Hydrochlorothiazide [Hyzaar 100-12.5 Tablet] 1 each PO DAILY #30 tablet 10/24/16 Disposition Discussed With: Patient
== END 2016-12-16 22:10 ==
LOC: ED 19:36
DX: K56.41 Fecal impaction (principal); R10.9 Unspecified abdominal pain
CPT/HCPCS: 99282

== ENCOUNTER 2018-09-13 14:39 | Outpatient (CLI) | END 2018-09-13 14:40 | disposition home or self-care (01) | LOC: LAB 14:39 | PROVIDERS: ATTEND Nurse Practitioner Family | DX: Z79.899 Other long term (current) drug therapy (principal) | CPT/HCPCS: 81001; 87086; 87186 ==